=== PATIENT | male | born 1935 | race Caucasian/White ===

== ENCOUNTER → 2018-04-14 12:06 | Outpatient (CLI) | payer OTHER, SELFPAY ==
[2018-04-14 14:31] LABS: Absolute Neutrophil Count 3.9 X10^3/uL (2.0-7.7); Basophil# 0.04 X10^3/uL; Basophil% 0.6 % (0-1); Eosinophil# 0.18 X10^3/uL; Eosinophils% 2.9 % (0-5); Hematocrit 41.3 % (40-54); Hemoglobin 13.5 g/dl (13.0-16.5); Lymphocyte % 27.2 % (19-41); Mean Corp Hgb Conc 32.7 g/gl (32-36); Mean Corpuscular Hgb 29.5 pg (27.0-32.0); Mean Corpuscular Volume 90.4 fL (80-94); Mean Platelet Vol. 10.6 fl (6.2-12.0); Monocyte# 0.43 X10^3/uL; Monocyte% 6.9 % (0-10); Neutrophil # 3.91 X10^3/uL (2.7-7.7); Neutrophil % 62.4 % (47-70); Platelet Count 258 K/mm3 (150-450); RBC Distribution Width SD 46.2 fl (35.1-43.9); Red Blood Count 4.57 M/mm3 (4.6-6.2); White Blood Count 6.3 K/mm3 (4.4-11.0)
[2018-04-14 14:37] LABS: POSITIVE COUNT NO; POSITIVE DIFFERENTIAL NO; POSITIVE MORPHOLOGY NO
[2018-04-14 15:00] LABS: ALB/GLOB Ratio 1.1 RATIO (0.9-2.4); AST(SGOT) 23 U/L (15-37); Alanine Aminotransfer ALT/SGPT 25 U/L (16-61); Albumin, Serum 3.8 g/dL (3.2-5.0); Alkaline Phosphatase 62 U/L (45-117); Anion Gap 7 (5-15); BUN 18 mg/dL (7-18); BUN/Creat Ratio 17.6 RATIO (10-20); Calcium,Total 8.8 mg/dL (8.5-10.1); Chloride 105 mmol/L (98-107); Creatinine, Serum 1.02 mg/dL (0.70-1.30); EST Glomerular Filtration Rate 74 mL/min (>60); Est Glom Filt Rate - Afr Amer 90 mL/min (>60); Globulin 3.4 g/dL (2.2-4.2); Glucose 89 mg/dL (74-106); Magnesium 2.2 mg/dL (1.6-2.6); Potassium 4.4 mmol/L (3.5-5.1); Protein, Total 7.2 g/dL (6.4-8.2); Sodium Level 141 mmol/L (136-145); Thyroid Stim Hormone (TSH) 2.87 uIU/mL (0.358-3.74)
--- OUTSIDE RECORDS SUMMARY | 2018-06-16 10:08 | XMS RPT_ITS ---
:1935 Author Organization OHIP Support Name Relationship Address Phone R Unavailable Unavailable Unavailable TANNER LEE Unavailable [id number] + [place] [address] TANNER LEE Unavailable [address] + [place] [address] TANNER LEE Unavailable [phone] + [place] [address] TANNER LEE Unavailable [address] + [place] [address] TANNER LEE Unavailable [address] + [place] [address] ROSA, TANNER Unavailable [address] + [place] [address] TANNER LEE Unavailable [address] + [place] [address] TANNER LEE Unavailable [address] + [place] [address] TANNER LEE Unavailable [address] + [place] [address] ROSA, TANNER Unavailable [address] + [place] [address] ROSA, TANNRE Unavailable [address] + [place] [address] ROSATANNER Mullen Unavailable [address] + [place] [address] ROSA, TANNER Unavailable [address] + [place] [address] ROSATANNER Mullen Unavailable [address] + [place] [address] ROSA, TANNER Unavailable [address] + [place] [address] TANNER LEE Unavailable [address] + [place] [address] TANNER LEE Unavailable [address] + [place] [address] TANNER LEE Unavailable [address] + [place] [address] Care Team Providers Name Role Phone GIORGIO VÁZQUEZ, DR. BEGUM Attending Unavailable GIORGIO VÁZQUEZ, DR. BEGUM Primary Care Unavailable FELICIA WARREN, DR. MADHURI Castañeda Attending Unavailable GIORGIO , DR. BEGUM Primary Care Unavailable MARTHA WARREN, DR. JO Emery Attending Unavailable GIORGIO VÁZQUEZ, DR. BEGUM Primary Care Unavailable MARTHA WARREN, DR. JO Emery Attending Unavailable GIORGIO VÁZQUEZ, DR. BEGUM Primary Care Unavailable ANUSHA PAYTON, MSManas ANDERSON Attending Unavailable GIORGIO VÁZQUEZ, DR. BEGUM Primary Care Unavailable ANUSHA PAYTON, MSManas ANDERSON Attending Unavailable GIORGIO VÁZQUEZ, DR. BEGUM Primary Care Unavailable MARTHA WARREN, DR. JO Emery Attending Unavailable GIORGIO VÁZQUEZ, DR. BEGUM Primary Care Unavailable MARTHA WARREN, DR. JO Emery Attending Unavailable GIORGIO VÁZQUEZ, DR. BEGUM Primary Care Unavailable REBECCA MCCLELLAN MD Attending Unavailable GIORGIO VÁZQUEZ, DR. BEGUM Primary Care Unavailable Rebecca Collins Attending Unavailable Rebecca Collins Primary Care Unavailable PROBLEMS PROBLEMS DATE TYPE CONDITION / CODE ATTENDING STATUS SOURCE 02/15/2018 Admitting Persistent atrial REBECCA MCCLELLAN MD Active [facility] Diagnosis fibrillation / [facility] I48.1(ICD-10) Repository 10/12/2017 Admitting Unspecified atrial ANUSHA PAYTON, MS. Active [facility] Diagnosis fibrillation / [facility] I48.91(ICD-10) Repository PROCEDURES PROCEDURES No Procedure Records FoundRESULTS RESULTS CBC W/DIFF, AUTOMATED Collected: 04/14/2018 Status: F Source: [place] 12:09 PM [facility] REPOSITORY TYPE CODE TESTS RESULT OUT OF RANGE REFERENCE UNITS LAB L100.1000 4.4-11.0 K/mm3 Normal WBC 6.3 LAB L100.1200 4.6-6.2 M/mm3 Low RBC 4.57 LAB L100.1300 13.0-16.5 g/dl Normal HGB 13.5 LAB L100.1400 40-54 % Normal HCT 41.3 LAB L100.1500 80-94 fL Normal MCV 90.4 LAB L100.1600 27.0-32.0 pg Normal MCH 29.5 LAB L100.1700 32-36 g/gl Normal MCHC 32.7 LAB L100.1810 11.6-14.6 % Normal RDW CV 14.0 LAB L100.1820 35.1-43.9 fl High RDW SD 46.2 LAB L100.1900 150-450 K/mm3 Normal PLT 258 LAB L100.2000 6.2-12.0 fl Normal MPV 10.6 LAB L100.2100 47-70 % Normal NEUT% 62.4 LAB L100.2200 19-41 % Normal LY% 27.2 LAB L100.2300 0-10 % Normal MONO% 6.9 LAB L100.2400 0-5 % Normal EO% 2.9 LAB L100.2500 0-1 % Normal BASO% 0.6 LAB L100.2550 0.0-0.9 % Normal IM GRAN % 0.000 Result Comment: IG% - Immature Granulocytes (promyelocytes, myelocytes and metamyelocytes) > 1% indicates that a LEFT SHIFT is Present. LAB L100.2620 2.0-7.7 X10 3/uL Normal Absolute Neut 3.9 LAB L100.2720 0.83-4.51 X10 3/ul Normal Absolute Lymph 1.70 Performed By: #### L100.0100, L500.4050, L501.5200 #### [facility] [address] [place], [address] COMPREHENSIVE METABOLIC Collected: 04/14/2018 Status: F Source: [facility] 12:09 PM [facility] REPOSITORY TYPE CODE TESTS RESULT OUT OF RANGE REFERENCE UNITS LAB L501.0100 74-106 mg/dL Normal GLU 89 Result Comment: Please note revised GLUCOSE reference range effective 2017. LAB L501.1000 7-18 mg/dL Normal BUN 18 LAB L501.1100 0.70-1.30 mg/dL Normal CREAT,SERUM 1.02 Result Comment: The validity of the calculated GFR AND GFRAA in patients over 70 years has not been determined. Clinical correlation is essential. LAB L501.1110 >60 mL/min Normal EST GFR 74 Result Comment: Non- GFR Calc LAB L501.1115 >60 mL/min Normal EST GFR - AA 90 Result Comment: GFR Calc LAB L501.1300 10-20 RATIO Normal BUN/CRE 17.6 LAB L501.1500 6.4-8.2 g/dL T Normal PROT 7.2 LAB L501.1800 3.2-5.0 g/dL Normal ALB 3.8 LAB L501.1950 2.2-4.2 g/dL Normal GLOB 3.4 LAB L501.2000 0.9-2.4 RATIO Normal A/G 1.1 LAB L501.2200 8.5-10.1 mg/dL CA Normal 8.8 LAB L501.4100 15-37 U/L Normal AST 23 LAB L501.4305 45-117 U/L Normal ALK P 62 LAB L501.4405 16-61 U/L Normal ALT 25 LAB L501.4600 0.20-1.00 mg/dL T Normal BILI 0.50 LAB L501.5300 136-145 mmol/L NA Normal 141 LAB L501.5600 3.5-5.1 mmol/L K Normal 4.4 LAB L501.5900 98-107 mmol/L CL Normal 105 LAB L501.6100 21.0-32.0 mmol/L Normal CO2 29.0 LAB L501.6200 5-15 Normal GAP 7 Performed By: #### L100.0100, L500.4050, L501.5200 #### [facility] [address] [facility]. [place], [place], [id number] MAGNESIUM Collected: 04/14/2018 Status: F Source: [place] 12:09 PM [facility] REPOSITORY TYPE CODE TESTS RESULT OUT OF RANGE REFERENCE UNITS LAB L501.5200 1.6-2.6 mg/dL Normal MG 2.2 Performed By: #### L100.0100, L500.4050, L501.5200 #### [facility] [address] [facility] [place], [place], [address] THYROID STIM HORMONE Collected: 04/14/2018 Status: F Source: [place] (TSH) 12:09 PM [facility] REPOSITORY TYPE CODE TESTS RESULT OUT OF RANGE REFERENCE UNITS LAB L501.9520 0.358-3.74 uIU/mL Normal TSH 2.87 Performed By: #### L501.9520 #### [facility] [address], [address] CBC Collected: 02/15/2018 Status: F Source: [facility] 1:12 PM [facility] REPOSITORY TYPE CODE TESTS RESULT OUT OF REFERENCE UNITS RANGE LAB WBC(LOINC) 4.60-10.80 10 3/mcL WBC 6.00 LAB RBCCT(LOINC 4.04-6.13 10 6/mcL ) RBC 4.52 LAB HGB(LOINC) 14.0-18.0 G/dL Low Hgb 13.4 LAB HCT(LOINC) 42.0-52.0 % Low Hct 40.8 LAB MCV(LOINC) 80.0-94.0 fL MCV 90.4 LAB MCH(LOINC) 27.0-31.2 pg MCH 29.7 LAB MCHC(LOINC) 31.8-35.4 G/dL MCHC 32.9 LAB RDW(LOINC) 11.5-14.5 % RDW 14.1 LAB PLT(LOINC) 130-400 10 3/mcL Platelet 283 LAB MPV(LOINC) 7.4-10.4 fL MPV 9.0 Performed By: #### CBC, ADIFF, ANEU #### [address] [address] #### BMP, GFR #### [address] [address] .AUTO DIFF Collected: 02/15/2018 Status: F Source: [facility] 1:12 PM [facility] REPOSITORY TYPE CODE TESTS RESULT OUT OF REFERENCE UNITS RANGE LAB ANTIONETTE(LOINC) 37.0-80.0 % Neutrophil % 49.1 LAB LYM(LOINC) 10.0-50.0 % Lymphocyte % 37.0 LAB MON(LOINC) 1.7-13.0 % Monocyte % 9.7 LAB EO(LOINC) 0.0-7.0 % Eosinophil % 3.1 LAB BAS(LOINC) 0.0-2.5 % Basophil % 1.1 LAB ABLYM(LOIN 0.77-3.85 10 3/mcL C) Lymphocyte, 2.20 Absolute LAB SHAWN(LOINC 0.15-1.00 10 3/mcL ) Monocyte, 0.60 Absolute LAB AEOS(LOINC 0.00-0.40 10 3/mcL ) Eosinophil, 0.20 Absolute LAB ABAS(LOINC 0.00-0.19 10 3/mcL ) Basophil, 0.10 Absolute Performed By: #### CBC, ADIFF, ANEU #### [facility] [address] [place], [place] [address] #### BMP, GFR #### [address] [address] .NEUABS Collected: 02/15/2018 Status: F Source: [facility] 1:12 [facility] REPOSITORY TYPE CODE TESTS RESULT OUT OF REFERENCE UNITS RANGE LAB ANEU(LOINC) 2.85-6.16 10 3/mcL Neutrophil, 2.90 Absolute Performed By: #### CBC, ADIFF, ANEU #### [place] [address] [place], [place] [address] #### BMP, GFR #### [address] [address] BMP Collected: 02/15/2018 Status: F Source: [facility] 1:12 [facility] REPOSITORY TYPE CODE TESTS RESULT OUT OF REFERENCE UNITS RANGE LAB GLU(LOINC) 83-110 mg/dL Low Glucose Level 78 LAB NA(LOINC) 136-145 mmol/L Sodium Level 138 LAB K(LOINC) 3.5-5.1 mmol/L Potassium Level 4.2 LAB CL(LOINC) 98-107 mmol/L Chloride 100 LAB CO2(LOINC) 23-31 mmol/L CO2 30 LAB EBAL(LOINC mEq/L ) Electrolyte Balance 8.0 LAB BUN(LOINC) 7-18 mg/dL BUN 14 LAB CRE(LOINC) 0.70-1.30 mg/dL Creatinine Lvl (s) 1.07 LAB BC(LOINC) 7-27 ratio BUN/Creatinine 13 Ratio LAB CA(LOINC) 8.4-10.2 mg/dL Calcium Lvl 9.1 Performed By: #### CBC, ADIFF, ANEU #### [facility] [address] [place], [place] [address] #### BMP, GFR #### [address] [address] .GFR Collected: 02/15/2018 Status: F Source: [facility] 1:12 PM [facility] REPOSITORY TYPE CODE TESTS RESULT OUT OF REFERENCE UNITS RANGE LAB GFRAA(LOINC ml/min/1.73 ) sqm GFR 80 [place] Result Comment: GFR Population mean for , Non- Americans Ages 20-29 = 116 mL/min/1.73 sq.m. Ages 30-39 = 107 mL/min/1.73 sq.m. Ages 40-49 = 99 mL/min/1.73 sq.m. Ages 50-59 = 93 mL/min/1.73 sq.m. Ages 60-69 = 85 mL/min/1.73 sq.m. Ages 70+ = 75 mL/min/1.73 sq.m. Chronic Kidney Disease: Less than 60 mL/min/1.73 square meters End Stage Renal Disease: Less than 15 mL/min/1.73 square meters LAB GFRNO(LOINC) ml/min/1.73sqm GFR Non- 66 Result Comment: GFR Population mean for , Non- Americans Ages 20-29 = 116 mL/min/1.73 sq.m. Ages 30-39 = 107 mL/min/1.73 sq.m. Ages 40-49 = 99 mL/min/1.73 sq.m. Ages 50-59 = 93 mL/min/1.73 sq.m. Ages 60-69 = 85 mL/min/1.73 sq.m. Ages 70+ = 75 mL/min/1.73 sq.m. Chronic Kidney Disease: Less than 60 mL/min/1.73 square meters End Stage Renal Disease: Less than 15 mL/min/1.73 square meters Performed By: #### CBC, ADIFF, ANEU #### [facility] [place] [address] [place], [place] [address] #### BMP, GFR #### [address] [address] CBC Collected: 12/22/2017 Status: F Source: [facility] 1:56 PM [facility]POSIT[facility] TYPE CODE TESTS RESULT OUT OF REFERENCE UNITS RANGE LAB WBC(LOINC) 4.60-10.80 10 3/mcL WBC 5.60 LAB RBCCT(LOINC 4.04-6.13 10 6/mcL ) RBC 4.53 LAB HGB(LOINC) 14.0-18.0 G/dL Low Hgb 13.6 LAB HCT(LOINC) 42.0-52.0 % Low Hct 40.9 LAB MCV(LOINC) 80.0-94.0 fL MCV 90.4 LAB MCH(LOINC) 27.0-31.2 pg MCH 30.1 LAB MCHC(LOINC) 31.8-35.4 G/dL MCHC 33.3 LAB RDW(LOINC) 11.5-14.5 % RDW 14.2 LAB PLT(LOINC) 130-400 10 3/mcL Platelet 218 LAB MPV(LOINC) 7.4-10.4 fL MPV 8.6 Performed By: #### CBC, ADIFF, ANEU #### Janice [address] [address] #### BMP, GFR #### [address] [address] .AUTO DIFF Collected: 12/22/2017 Status: F Source: [facility] 1:56 PM [facility] REPOSITORY TYPE CODE TESTS RESULT OUT OF REFERENCE UNITS RANGE LAB ANTIONETTE(LOINC) 37.0-80.0 % Neutrophil % 54.2 LAB LYM(LOINC) 10.0-50.0 % Lymphocyte % 32.7 LAB MON(LOINC) 1.7-13.0 % Monocyte % 8.3 LAB EO(LOINC) 0.0-7.0 % Eosinophil % 3.5 LAB BAS(LOINC) 0.0-2.5 % Basophil % 1.3 LAB ABLYM(LOIN 0.77-3.85 10 3/mcL C) Lymphocyte, 1.80 Absolute LAB SHAWN(LOINC 0.15-1.00 10 3/mcL ) Monocyte, 0.50 Absolute LAB AEOS(LOINC 0.00-0.40 10 3/mcL ) Eosinophil, 0.20 Absolute LAB ABAS(LOINC 0.00-0.19 10 3/mcL ) Basophil, 0.10 Absolute Performed By: #### CBC, ADIFF, ANEU #### [place] [place], [place] [address] #### BMP, GFR #### [address] [address] .NEUABS Collected: 12/22/2017 Status: F Source: [facility] 1:56 PM [facility] REPOSITORY TYPE CODE TESTS RESULT OUT OF REFERENCE UNITS RANGE LAB ANEU(LOINC) 2.85-6.16 10 3/mcL Neutrophil, 3.00 Absolute Performed By: #### CBC, ADIFF, ANEU #### [place] [address] [place], [place] [address] #### BMP, GFR #### [address] [address] BMP Collected: 12/22/2017 Status: F Source: [facility] 1:56 [facility] REPOSITORY TYPE CODE TESTS RESULT OUT OF REFERENCE UNITS RANGE LAB GLU(LOINC) 83-110 mg/dL Glucose Level 89 LAB NA(LOINC) 136-145 mmol/L Sodium Level 138 LAB K(LOINC) 3.5-5.1 mmol/L Potassium Level 4.5 LAB CL(LOINC) 98-107 mmol/L Chloride 102 LAB CO2(LOINC) 23-31 mmol/L CO2 31 LAB EBAL(LOINC mEq/L ) Electrolyte Balance 5.0 LAB BUN(LOINC) 7-18 mg/dL BUN 18 LAB CRE(LOINC) 0.70-1.30 mg/dL Creatinine Lvl (s) 1.09 LAB BC(LOINC) 7-27 ratio BUN/Creatinine 17 Ratio LAB CA(LOINC) 8.4-10.2 mg/dL Calcium Lvl 9.3 Performed By: #### CBC, ADIFF, ANEU #### [address] [address] #### BMP, GFR #### [address] [address] .GFR Collected: 12/22/2017 Status: F Source: [facility] 1:56 PM [facility] REPOSITORY TYPE CODE TESTS RESULT OUT OF REFERENCE UNITS RANGE LAB GFRAA(LOINC ml/min/1.73 ) sqm GFR 79 [place] Result Comment: GFR Population mean for , Non- Americans Ages 20-29 = 116 mL/min/1.73 sq.m. Ages 30-39 = 107 mL/min/1.73 sq.m. Ages 40-49 = 99 mL/min/1.73 sq.m. Ages 50-59 = 93 mL/min/1.73 sq.m. Ages 60-69 = 85 mL/min/1.73 sq.m. Ages 70+ = 75 mL/min/1.73 sq.m. Chronic Kidney Disease: Less than 60 mL/min/1.73 square meters End Stage Renal Disease: Less than 15 mL/min/1.73 square meters LAB GFRNO(LOINC) ml/min/1.73sqm GFR Non- 65 Result Comment: GFR Population mean for , Non- Americans Ages 20-29 = 116 mL/min/1.73 sq.m. Ages 30-39 = 107 mL/min/1.73 sq.m. Ages 40-49 = 99 mL/min/1.73 sq.m. Ages 50-59 = 93 mL/min/1.73 sq.m. Ages 60-69 = 85 mL/min/1.73 sq.m. Ages 70+ = 75 mL/min/1.73 sq.m. Chronic Kidney Disease: Less than 60 mL/min/1.73 square meters End Stage Renal Disease: Less than 15 mL/min/1.73 square meters Performed By: #### CBC, ADIFF, ANEU #### [address] [address] #### BMP, GFR #### [place] [address] NM MYOCARDIAL SPECT Observed: 10/27/2017 Status: F Source: [place] STRESS/REST 8:15 AM [facility] [place] REPOSITORY ORIGINAL NM MYOCARDIAL SPECT STRESS/REST CLINICAL STATEMENT:ATRIAL FIBRILLATION TECHNIQUE: Stress Protocol:Sp Time Exercised:8:01minutes Predicted Max HR:139 Max HR Achieved:139 Percent Max HR:100 Peak Systolic BP:178/70 mmHg Rate-Pressure product: 68820 Radiopharmaceutical(rest): Tc-99m Sestamibi IV Dose:10.1 mCi Radiopharmaceutical(stress): Tc-99m Sestamibi IV Dose:31.1 mCi SPECT acquisition:SPECT reconstruction and reorientation into short axis, vertical and horizontal long axis planes Quantitative LVEF assessment COMPARISON:None REPORT:Left ventricle appears normal in size on both stress and rest images. On the stress images there appears to be a fixed defect in the apical region suggestive of prior myocardial infarction. Rest of the myocardium has homogenous radiotracer uptake. On the resting images th ere is reduced radiotracer in the apical region. Gated SPECT imaging revealed normal wall motion and normal end systolic brightening and thickening of all myocardial segments. Calculated LVEF 60%. Left ventricular end-diastolic volume 82 mL. IMPRESSION: 1. No evidence of inducible ischemia noted on the nuclear images. 2. Fixed defect in the apical region suggestive of prior myocardial infarction. 3. Normal wall motion and normal left ventricular systolic function, ejection fraction 60%. 4. No prior study available for comparison. Interpreted By: Brad Harris Preliminary Report By: Brad Harris Electronically Signed By: Brad Harris Dictated Date: 10/27/2017 4:16:10 PM Prelim Date: 10/27/2017 4:16:10 PM Sign Date: 10/27/2017 4:26:59 PM TSH Collected: 10/12/2017 Status: F Source: [facility] 11:03 AM [facility] REPOSITORY TYPE CODE TESTS RESULT OUT OF RANGE REFERENCE UNITS LAB TSH(LOINC) 0.36-3.74 mcIU/mL TSH 2.81 Performed By: #### TSH, CMP, GFR, MG #### [place] [address] CMP Collected: 10/12/2017 Status: F Source: [facility] 11:03 AM [facility] REPOSITORY TYPE CODE TESTS RESULT OUT OF REFERENCE UNITS RANGE LAB GLU(LOINC) 83-110 mg/dL Glucose Level 90 LAB NA(LOINC) 136-145 mmol/L Sodium Level 139 LAB K(LOINC) 3.5-5.1 mmol/L Potassium Level 4.3 LAB CL(LOINC) 98-107 mmol/L Chloride 101 LAB CO2(LOINC) 23-31 mmol/L CO2 28 LAB EBAL(LOINC mEq/L ) Electrolyte Balance 10.0 LAB BUN(LOINC) 7-18 mg/dL BUN 13 LAB CRE(LOINC) 0.70-1.30 mg/dL Creatinine Lvl (s) 1.23 LAB BC(LOINC) 7-27 ratio BUN/Creatinine 11 Ratio LAB CA(LOINC) 8.4-10.2 mg/dL Calcium Lvl 9.2 LAB PROT(LOINC 6.4-8.2 G/dL ) Total Protein 7.4 LAB ALB(LOINC) 3.4-4.8 G/dL Albumin Level 4.0 LAB GLB(LOINC) G/dL Globulin 3.4 LAB AG(LOINC) 1.1-2.5 ratio A/G Ratio 1.2 LAB BILT(LOINC 0.2-1.0 mg/dL ) Bili Total 0.7 LAB AP(LOINC) 40-135 U/L Alk Phos 65 LAB AST(LOINC) 10-40 U/L AST/SGOT 33 LAB ALT(LOINC) 10-35 U/L ALT/SGPT High 38 Performed By: #### TSH, CMP, GFR, MG #### [place] [address] .GFR Collected: 10/12/2017 Status: F Source: [facility] 11:03 AM [facility] REPOSITORY TYPE CODE TESTS RESULT OUT OF REFERENCE UNITS RANGE LAB GFRAA(LOINC ml/min/1.73 ) sqm GFR 68 [place] Result Comment: GFR Population mean for , Non- Americans Ages 20-29 = 116 mL/min/1.73 sq.m. Ages 30-39 = 107 mL/min/1.73 sq.m. Ages 40-49 = 99 mL/min/1.73 sq.m. Ages 50-59 = 93 mL/min/1.73 sq.m. Ages 60-69 = 85 mL/min/1.73 sq.m. Ages 70+ = 75 mL/min/1.73 sq.m. Chronic Kidney Disease: Less than 60 mL/min/1.73 square meters End Stage Renal Disease: Less than 15 mL/min/1.73 square meters LAB GFRNO(LOINC) ml/min/1.73sqm GFR Non- 56 Result Comment: GFR Population mean for , Non- Americans Ages 20-29 = 116 mL/min/1.73 sq.m. Ages 30-39 = 107 mL/min/1.73 sq.m. Ages 40-49 = 99 mL/min/1.73 sq.m. Ages 50-59 = 93 mL/min/1.73 sq.m. Ages 60-69 = 85 mL/min/1.73 sq.m. Ages 70+ = 75 mL/min/1.73 sq.m. Chronic Kidney Disease: Less than 60 mL/min/1.73 square meters End Stage Renal Disease: Less than 15 mL/min/1.73 square meters Performed By: #### TSH, CMP, GFR, MG #### [address] [address] MG Collected: 10/12/2017 Status: F Source: [facility] 11:03 AM [facility] REPOSITORY TYPE CODE TESTS RESULT OUT OF REFERENCE UNITS RANGE LAB MG(LOINC) 1.8-2.4 mg/dL Magnesium Lvl 2.2 Performed By: #### TSH, CMP, GFR, MG #### [address] [address] CBC Collected: 10/06/2017 Status: F Source: [facility] 11:17 [facility] REPOSITORY TYPE CODE TESTS RESULT OUT OF REFERENCE UNITS RANGE LAB WBC(LOINC) 4.60-10.80 10 3/mcL Low WBC 3.80 LAB RBCCT(LOINC 4.04-6.13 10 6/mcL ) RBC 4.77 LAB HGB(LOINC) 14.0-18.0 G/dL Hgb 14.3 LAB HCT(LOINC) 42.0-52.0 % Hct 42.7 LAB MCV(LOINC) 80.0-94.0 fL MCV 89.4 LAB MCH(LOINC) 27.0-31.2 pg MCH 29.9 LAB MCHC(LOINC) 31.8-35.4 G/dL MCHC 33.4 LAB RDW(LOINC) 11.5-14.5 % RDW 14.3 LAB PLT(LOINC) 130-400 10 3/mcL Platelet 225 LAB MPV(LOINC) 7.4-10.4 fL MPV 8.8 Performed By: #### CBC, ADIFF, ANEU, GFR, CMP #### [address] [address] .AUTO DIFF Collected: 10/06/2017 Status: F Source: [facility] 11:17 [facility] REPOSITORY TYPE CODE TESTS RESULT OUT OF REFERENCE UNITS RANGE LAB ANTIONETTE(LOINC) 37.0-80.0 % Neutrophil % 44.7 LAB LYM(LOINC) 10.0-50.0 % Lymphocyte % 38.3 LAB MON(LOINC) 1.7-13.0 % Monocyte % 11.6 LAB EO(LOINC) 0.0-7.0 % Eosinophil % 3.2 LAB BAS(LOINC) 0.0-2.5 % Basophil % 2.2 LAB ABLYM(LOIN 0.77-3.85 10 3/mcL C) Lymphocyte, 1.50 Absolute LAB SHAWN(LOINC 0.15-1.00 10 3/mcL ) Monocyte, 0.40 Absolute LAB AEOS(LOINC 0.00-0.40 10 3/mcL ) Eosinophil, 0.10 Absolute LAB ABAS(LOINC 0.00-0.19 10 3/mcL ) Basophil, 0.10 Absolute Performed By: #### CBC, ADIFF, ANEU, GFR, CMP #### [address] [address] .NEUABS Collected: 10/06/2017 Status: F Source: [facility] 11:17 [facility] REPOSITORY TYPE CODE TESTS RESULT OUT OF REFERENCE UNITS RANGE LAB ANEU(LOINC) 2.85-6.16 10 3/mcL Low Neutrophil, 1.70 Absolute Performed By: #### CBC, ADIFF, ANEU, GFR, CMP #### [address] [address] .GFR Collected: 10/06/2017 Status: F Source: [facility] 11:17 [facility] REPOSITORY TYPE CODE TESTS RESULT OUT OF REFERENCE UNITS RANGE LAB GFRAA(LOINC ml/min/1.73 ) sqm GFR >60 Canadian Result Comment: GFR Population mean for , Non- Americans Ages 20-29 = 116 mL/min/1.73 sq.m. Ages 30-39 = 107 mL/min/1.73 sq.m. Ages 40-49 = 99 mL/min/1.73 sq.m. Ages 50-59 = 93 mL/min/1.73 sq.m. Ages 60-69 = 85 mL/min/1.73 sq.m. Ages 70+ = 75 mL/min/1.73 sq.m. Chronic Kidney Disease: Less than 60 mL/min/1.73 square meters End Stage Renal Disease: Less than 15 mL/min/1.73 square meters LAB GFRNO(LOINC) ml/min/1.73sqm GFR Non- >60 Result Comment: GFR Population mean for , Non- Americans Ages 20-29 = 116 mL/min/1.73 sq.m. Ages 30-39 = 107 mL/min/1.73 sq.m. Ages 40-49 = 99 mL/min/1.73 sq.m. Ages 50-59 = 93 mL/min/1.73 sq.m. Ages 60-69 = 85 mL/min/1.73 sq.m. Ages 70+ = 75 mL/min/1.73 sq.m. Chronic Kidney Disease: Less than 60 mL/min/1.73 square meters End Stage Renal Disease: Less than 15 mL/min/1.73 square meters Performed By: #### CBC, ADIFF, ANEU, GFR, CMP #### [address] [address] CMP Collected: 10/06/2017 Status: F Source: [facility] 11:17 AM [facility] REPOSITORY TYPE CODE TESTS RESULT OUT OF REFERENCE UNITS RANGE LAB GLU(LOINC) 83-110 mg/dL Glucose Level 93 LAB NA(LOINC) 136-146 mEq/L Sodium Level 142 LAB K(LOINC) 3.5-5.1 mEq/L Potassium Level 4.3 LAB CL(LOINC) 98-107 mEq/L Chloride 106 LAB CO2(LOINC) 23-31 mEq/L CO2 29 LAB EBAL(LOINC mEq/L ) Electrolyte Balance 7.0 LAB BUN(LOINC) 7.0-18.0 mg/dL BUN 11.9 LAB CRE(LOINC) 0.6-1.2 mg/dL Creatinine Lvl (s) 1.0 LAB BC(LOINC) 7-27 ratio BUN/Creatinine 12 Ratio LAB CA(LOINC) 8.4-10.2 mg/dL Calcium Lvl 9.1 LAB PROT(LOINC 6.0-8.3 G/dL ) Total Protein 6.7 LAB ALB(LOINC) 3.4-4.8 G/dL Albumin Level 4.3 LAB GLB(LOINC) G/dL Globulin 2.4 LAB AG(LOINC) 1.1-2.5 ratio A/G Ratio 1.8 LAB BILT(LOINC 0.2-1.0 mg/dL ) Bili Total 0.4 LAB AP(LOINC) 40-135 IU/L Alk Phos 59 LAB AST(LOINC) 10-40 IU/L AST/SGOT 29 LAB ALT(LOINC) 10-35 IU/L ALT/SGPT 25 Performed By: #### CBC, ADIFF, ANEU, GFR, CMP #### Janice Dona Ana [address] [place], [place] [address] CT ABDOMEN/PELVIS Observed: 07/30/2017 Status: F Source: JANICE W/CONTRAST 10:00 AM [facility], [place] REPOSITORY ORIGINAL CT ABDOMEN/PELVIS W/CONTRAST CLINICAL STATEMENT: LLQ PAIN COMPARISON: None TECHNIQUE: Axial images were obtained from the lung bases through the pubic symphysis after the administration of IV and PO contrast. Coronal and sagittal reformatted images were generated from the axia l dataset. This exam was performed according to our departmental dose optimization program, and includes the following measures where applicable: automated exposure control, adjustment of the mAs and/or kVp according to patient size and/or exam, and an iterative reconstruction algorithm. FINDINGS: There are dependent atelectatic changes. There is diffusely low attenuation of the liver parenchyma which may be related to fatty infiltration. The spleen, adrenal glands and pancreas are within normal limits. There is cholelithiasis. No intra hepatic or extra hepatic biliary ductal dilation. The kidneys enhance symmetrically. There is a subcentimeter RIGHT renal cortical hypodensity which is too small to characterize however statistically likely represents a cyst. No hydronephrosis or suspi cious renal masses. Multiple phleboliths are seen within the pelvis. There is a small hiatal hernia. There are scattered colonic diverticula, without CT evidence of acute diverticulitis. There is a LEFT inguinal hernia containing a short segment of proximal sigmoid colon . The large and small bowel are normal in caliber. The appendix is normal. No free intraperitoneal fluid or air is identified. No pathologically enlarged lymph nodes. The aorta is atherosclerotic without aneurysmal dilation. The bladder is within normal limits. The prostate contains calcifications. There is a tiny fat-containing umbilical hernia. No acute osseous abnormality. Degenerative changes are seen within the spine. IMPRESSION: 1. No acute process. 2. LEFT inguinal hernia containing a short segment of nondilated proximal sigmoid colon. Interpreted By: Malu Sparks MD Preliminary Report By: Malu Sparks MD Electronically Signed By: Malu Sparks MD Dictated Date: 07/30/2017 1:47:49 PM Prelim Date: 07/30/2017 3:00:23 PM Sign Date: 07/30/2017 7:15:34 PM CRE Collected: 07/30/2017 Status: F Source: [facility] 7:53 AM [facility] REPOSITORY TYPE CODE TESTS RESULT OUT OF REFERENCE UNITS RANGE LAB CRE(LOINC) 0.6-1.2 mg/dL Creatinine Lvl 1.0 (s) Performed By: #### CRE, GFR #### [address] [address] .GFR Collected: 07/30/2017 Status: F Source: [facility] 7:53 AM [facility] REPOSITORY TYPE CODE TESTS RESULT OUT OF REFERENCE UNITS RANGE LAB GFRAA(LOINC ml/min/1.73 ) sqm GFR 87 Canadian Result Comment: GFR Population mean for , Non- Americans Ages 20-29 = 116 mL/min/1.73 sq.m. Ages 30-39 = 107 mL/min/1.73 sq.m. Ages 40-49 = 99 mL/min/1.73 sq.m. Ages 50-59 = 93 mL/min/1.73 sq.m. Ages 60-69 = 85 mL/min/1.73 sq.m. Ages 70+ = 75 mL/min/1.73 sq.m. Chronic Kidney Disease: Less than 60 mL/min/1.73 square meters End Stage Renal Disease: Less than 15 mL/min/1.73 square meters LAB GFRNO(LOINC) ml/min/1.73sqm GFR Non- >60 Result Comment: GFR Population mean for , Non- Americans Ages 20-29 = 116 mL/min/1.73 sq.m. Ages 30-39 = 107 mL/min/1.73 sq.m. Ages 40-49 = 99 mL/min/1.73 sq.m. Ages 50-59 = 93 mL/min/1.73 sq.m. Ages 60-69 = 85 mL/min/1.73 sq.m. Ages 70+ = 75 mL/min/1.73 sq.m. Chronic Kidney Disease: Less than 60 mL/min/1.73 square meters End Stage Renal Disease: Less than 15 mL/min/1.73 square meters Performed By: #### CRE, GFR #### [id number] [place], [place] [address] ALLERGIES ALLERGIES No Allergies Records FoundENCOUNTERS ENCOUNTERS ADMIT/DISCHARGE ACCOUNT NUMBER ADMITTING ENCOUNTER LOCATION SOURCE CLASS 04/14/2018 [id number] Ambulatory General acute hospital ding:MFPLAB Repository 02/15/2018/02/20/20 [id number] Ambulatory BBuilding:DR Janice [facility] 12/28/2017/12/29/19 [id number] [facility]Bed: A [facility] Repository 12/22/2017/12/23/19 [id number] Ambulatory JANICE [address] ding:OPRS [facility] Rep[facility] 10/27/2017/10/28/19 [id number] Ambulatory JANICE Janice [address] [place] [address] ding:CVT [facility] Repository 10/12/2017/10/17/19 [id number] Ambulatory JANICE [address] ding:DROP [facility] Repository 10/12/2017 [id number] Ambulatory BBuilding:Desai RSRoom: Health 0001Bed: A [facility] Repository 10/06/2017/10/07/19 [id number] Ambulatory JANICE Janice [address] [place] [address] ding:OPRS [facility] Repository 07/30/2017/07/31/19 [id number] Ambulatory JANICE Janice [address] [place] [address] ding:OLAB [facility] Repository 07/30/2017/07/31/19 [id number] Ambulatory BBuilding:RA Janice [facility] Repository PAYERS PAYERS ENCOUNTER GUARANTOR PAYER SUBSCRIBER SOURCE 04/14/2018 Miller FrederickOB: [place] [id number] Insurance:HEALTH PLAN [id number]: Repository [address]Vrk: (330) [id number] [phone] (HP) Date: [facility] [place] [address]YP: 04/14/2018 Secondary NOT GIVENUNK [place] Insurance:SELF PAY [facility] Number: Effective Repository Date:2018-04-14 02/15/2018 MILLER FREDERICKOB: Primary MILLER FREDERICKOB: [place] Insurance:SECURECARE [id number] [facility] MEDICAREPolicy [address] Repository [place], [place] Number: [place] [address]Zxk: (330) [id number] [id number]: (HP) Date:2018-02-15 [id number] (HP)Tel: [phone]) Name:Josh [facility] 000-0000 () [place] [address]DN: 12/28/2017 MILLER FREDERICKOB: Primary MILLER FREDERICKOB: [place] [id number] Insurance:SECURECARE [id number] [facility] [address] Repository [facility] [place] Number: [place] [id number]: (330) [id number]: (HP) Date:2017-12-18 [phone] (HP)Tel: ([phone]) Name:[id number] [facility] 000-0000 () [place] [address]BZ: 12/22/2017 MILLER FREDERICKOB: Primary MILLER FREDERICKOB: [place] Insurance:SECURECARE [id number] [facility] MEDICAREPolicy [address] Rep[address] [facility] [place] Number: [place] [address]Xob: (330) [id number]: (HP) Date:2017-12-18831Plan (HP)Tel: [phone]) Name:Josh [facility] 000-0000 (WP) [place] [address]BN: 10/27/2017 MILLER Patel DOTYDOB: Primary MILLER Patel DOTYDOB: [place] Insurance:SECURECARE [id number] Foundation [facility] MEDICAREPolicy [address] [place], [place] Number: [place] [id number]: (330) [id number]: (HP) Date:2017-10-13831Plan (HP)Tel: (000) Name:Josh SPENCER 000- (WP) [facility] [place] [place] [address]IJ: 10/12/2017 MILLER Patel DOTYDOB: Primary MILLER Patel DOTYDOB: [place] [id number] Insurance:SECURECARE [id number] Foundation [facility] MEDICAREPolicy [address] Repository [facility] [place] Number: [place] [id number]: (330) [id number]: (HP) Date:2017-10-12 [id number] (HP)Tel: (000) Name:Josh MAIN 000-0000 (WP) [facility] [place] [address]PE: 10/12/2017 MILLER Patel DOTYDOB: Primary MILLER Ptael DOTYDOB: [place] Insurance:SECURECARE [id number] [facility] MEDICAREPolicy [address] Repository [facility] [place] Number: [place] [address]Whx: (330) [id number]: (HP) Date:2017-10-01831Plan (HP)Tel: (000) Name:Johs SPENCER 000-0000 (WP) [place] [address]ZJ: 10/06/2017 MILLER Patel DOTYDOB: Primary MILLER Patel DOTYDOB: [place] Insurance:SECURECARE [id number] Foundation [facility] MEDICAREPolicy [address] Repository [place], [place] Number: [place] [address]Lwh: (330) [id number]: (HP) Date:2017-10-01831Plan (HP)Tel: (000) Name:Josh SPENCER 000- (WP) [facility] [place] [address]RH: 07/30/2017 MILLER Patel DOTYDOB: Primary MILLER Patel DOTYDOB: [place] Insurance:SECURECARE [id number] [place], [place] [address] [address] [place], [place] Number: [place] [id number]: (330) [id number]: (HP) Date:2017-07-30 [id number] (HP)Tel: (000) Name:Josh MAIN 000-0000 () [facility] [place] [address]TP: 07/30/2017 MILLER Patel DOTYDOB: Primary MILLER Patel DOTYDOB: [place] Insurance:SECURECARE [id number] Foundation [facility] MEDIC[facility] [address] Repository [facility] [place] Number: [place] [address]Aps: (330) [id number]: () Date:2017-07-28 [phone] ()Tel: ([phone]) Name:[id number] MAIN 000-0000 () [place] [address]II:
== END ==
PROVIDERS: Family Provider Family Medicine; PCP Family Medicine; Visit Provider Family Medicine
DX: I48.91 Unspecified atrial fibrillation (principal)
CPT/HCPCS: 36415; 80053; 83735; 84443; 85025

== ENCOUNTER → 2018-12-02 | Outpatient (CLI) | payer OTHER, SELFPAY ==
[2018-12-02 16:19] LABS: Absolute Lymphocyte Count 1.94 X10^3/uL (0.83-4.51); Absolute Neutrophil Count 3.7 X10^3/uL (2.0-7.7); Basophil# 0.06 X10^3/uL; Basophil% 0.9 % (0-1); Eosinophil# 0.27 X10^3/uL; Eosinophils% 4.2 % (0-5); Hematocrit 43.3 % (40-54); Hemoglobin 14.1 g/dL (13.0-16.5); Lymphocyte # 1.94 X10^3/ul (4.0); Lymphocyte % 30.2 % (19-41); Mean Corp Hgb Conc 32.6 g/dL (32-36); Mean Corpuscular Hgb 29.7 pg (27.0-32.0); Mean Corpuscular Volume 91.2 fL (80-94); Mean Platelet Vol. 10.3 fl (6.2-12.0); Monocyte# 0.48 X10^3/uL; Monocyte% 7.5 % (0-10); NRBC Flagged by Analyzer 0 % (0-5); Neutrophil # 3.67 X10^3/uL (2.7-7.7); Platelet Count 284 K/mm3 (150-450); RBC Distribution Width CV 13.7 % (11.6-14.6); RBC Distribution Width SD 46.1 fl (35.1-43.9); Red Blood Count 4.75 M/mm3 (4.6-6.2); White Blood Count 6.4 K/mm3 (4.4-11.0)
[2018-12-02 17:06] LABS: ALB/GLOB Ratio 0.9 RATIO (0.9-2.4); AST(SGOT) 24 U/L (15-37); Alanine Aminotransfer ALT/SGPT 21 U/L (16-61); Albumin, Serum 3.7 g/dL (3.2-5.0); Alkaline Phosphatase 72 U/L (45-117); Anion Gap 6 (5-15); BUN 13 mg/dL (7-18); BUN/Creat Ratio 11.9 RATIO (10-20); CPK Total, Creatine Kinase 187 U/L (39-308); Calcium,Total 8.9 mg/dL (8.5-10.1); Chloride 106 mmol/L (98-107); Cholesterol 135 mg/dL (200); Creatinine, Serum 1.09 mg/dL (0.70-1.30); EST Glomerular Filtration Rate 69 mL/min (>60); Est Glom Filt Rate - Afr Amer 83 mL/min (>60); Ferritin 17 ng/mL (26-388); Glucose 86 mg/dL (74-106); High Density Lipoprotein 50 mg/dL; Magnesium 2.1 mg/dL (1.6-2.6); Potassium 4.5 mmol/L (3.5-5.1); Protein, Total 7.7 g/dL (6.4-8.2); Sodium Level 141 mmol/L (136-145); Triglycerides 58 mg/dL; Very Low Density Lipoprotein 12 mg/dL (5-40)
== END | disposition home or self-care (01) ==
LOC: MFPLAB 14:03
PROVIDERS: Family Provider Family Medicine; PCP Family Medicine; Referring Provider Family Medicine; Visit Provider Family Medicine
DX: I48.91 Unspecified atrial fibrillation (principal); R25.2 Cramp and spasm
CPT/HCPCS: 36415; 80053; 80061; 82550; 82728; 83735; 85025

== ENCOUNTER → 2018-12-16 | Outpatient (CLI) | payer OTHER, SELFPAY ==
[2018-12-16 17:39] LABS: Basophil# 0.03 X10^3/uL; Basophil% 0.5 % (0-1); Eosinophils% 1.6 % (0-5); Hematocrit 47.6 % (40-54); Hemoglobin 15.4 g/dL (13.0-16.5); Lymphocyte % 22.7 % (19-41); Mean Corp Hgb Conc 32.4 g/dL (32-36); Mean Corpuscular Hgb 29.2 pg (27.0-32.0); Mean Corpuscular Volume 90.3 fL (80-94); Mean Platelet Vol. 10.6 fl (6.2-12.0); Monocyte# 0.67 X10^3/uL; Monocyte% 10.9 % (0-10); NRBC Flagged by Analyzer 0 % (0-5); Neutrophil # 3.95 X10^3/uL (2.7-7.7); Neutrophil % 64.1 % (47-70); Platelet Count 225 K/mm3 (150-450); RBC Distribution Width CV 13.8 % (11.6-14.6); RBC Distribution Width SD 46.1 fl (35.1-43.9); Red Blood Count 5.27 M/mm3 (4.6-6.2); White Blood Count 6.2 K/mm3 (4.4-11.0)
== END | disposition home or self-care (01) ==
LOC: MFPLAB 16:12
PROVIDERS: Family Medicine; Family Provider Family Medicine; PCP Family Medicine; Referring Provider Family Medicine; Visit Provider Family Medicine
DX: K92.1 Melena (principal)
CPT/HCPCS: 36415; 85025

== ENCOUNTER → 2019-02-02 | Outpatient (CLI) | payer OTHER, SELFPAY ==
[2019-02-02 15:58] LABS: Ferritin 23 ng/mL (26-388)
== END | disposition home or self-care (01) ==
LOC: MFPLAB 14:08
PROVIDERS: Family Provider Family Medicine; PCP Family Medicine; Referring Provider Family Medicine; Visit Provider Family Medicine
DX: R79.0 Abnormal level of blood mineral (principal)
CPT/HCPCS: 36415; 82728

== ENCOUNTER → 2019-07-29 | Outpatient (CLI) | payer OTHER, SELFPAY ==
[2019-07-29 15:32] LABS: Absolute Lymphocyte Count 1.74 X10^3/uL (0.83-4.51); Absolute Neutrophil Count 2.5 X10^3/uL (2.0-7.7); Basophil# 0.06 X10^3/uL; Basophil% 1.2 % (0-1); Eosinophil# 0.16 X10^3/uL; Eosinophils% 3.3 % (0-5); Hematocrit 44.4 % (40-54); Hemoglobin 14.3 g/dL (13.0-16.5); Lymphocyte # 1.74 X10^3/ul (4.0); Lymphocyte % 35.9 % (19-41); Mean Corp Hgb Conc 32.2 g/dL (32-36); Mean Corpuscular Hgb 29.8 pg (27.0-32.0); Mean Corpuscular Volume 92.5 fL (80-94); Mean Platelet Vol. 10.4 fl (6.2-12.0); Monocyte# 0.36 X10^3/uL; Monocyte% 7.4 % (0-10); NRBC Flagged by Analyzer 0 % (0-5); Neutrophil # 2.52 X10^3/uL (2.7-7.7); Platelet Count 236 K/mm3 (150-450); RBC Distribution Width CV 13.6 % (11.6-14.6); RBC Distribution Width SD 46.5 fl (35.1-43.9); White Blood Count 4.9 K/mm3 (4.4-11.0)
[2019-07-29 15:54] LABS: AST(SGOT) 25 U/L (15-37); Alanine Aminotransfer ALT/SGPT 28 U/L (16-61); Albumin, Serum 3.8 g/dL (3.2-5.0); Alkaline Phosphatase 61 U/L (45-117); Anion Gap 5 (5-15); BUN 13 mg/dL (7-18); BUN/Creat Ratio 12.5 RATIO (10-20); Calcium,Total 8.6 mg/dL (8.5-10.1); Chloride 107 mmol/L (98-107); Creatinine, Serum 1.04 mg/dL (0.70-1.30); EST Glomerular Filtration Rate 72 mL/min (>60); Est Glom Filt Rate - Afr Amer 88 mL/min (>60); Ferritin 48 ng/mL (26-388); Globulin 3.7 g/dL (2.2-4.2); Glucose 93 mg/dL (74-106); Iron 82 ug/dL (65-175); Iron Binding Capacity,Total 322 ug/dL (250-450); Magnesium 2.2 mg/dL (1.6-2.6); Potassium 4.4 mmol/L (3.5-5.1); Protein, Total 7.5 g/dL (6.4-8.2); Sodium Level 138 mmol/L (136-145)
== END | disposition home or self-care (01) ==
LOC: MFPLAB 11:31
PROVIDERS: PCP Family Medicine; Visit Provider Family Medicine
DX: I48.91 Unspecified atrial fibrillation (principal); R79.0 Abnormal level of blood mineral
CPT/HCPCS: 36415; 80053; 82728; 83540; 83550; 83735; 85025

== ENCOUNTER → 2019-09-30 | Outpatient (CLI) | payer OTHER, SELFPAY ==
[2019-09-30 17:41] LABS: Anion Gap 5 (5-15); BUN 12 mg/dL (7-18); BUN/Creat Ratio 11.8 RATIO (10-20); Calcium,Total 8.5 mg/dL (8.5-10.1); Chloride 106 mmol/L (98-107); Creatinine, Serum 1.02 mg/dL (0.70-1.30); EST Glomerular Filtration Rate 74 mL/min (>60); Est Glom Filt Rate - Afr Amer 90 mL/min (>60); Glucose 86 mg/dL (74-106); Potassium 4.3 mmol/L (3.5-5.1); Sodium Level 139 mmol/L (136-145)
[2019-09-30 17:55] LABS: Absolute Lymphocyte Count 1.61 X10^3/uL (0.83-4.51); Absolute Neutrophil Count 4.4 X10^3/uL (2.0-7.7); Basophil# 0.05 X10^3/uL; Basophil% 0.8 % (0-1); Eosinophil# 0.17 X10^3/uL; Eosinophils% 2.6 % (0-5); Hemoglobin 13.5 g/dL (13.0-16.5); Lymphocyte # 1.61 X10^3/ul (4.0); Lymphocyte % 24.5 % (19-41); Mean Corp Hgb Conc 32.1 g/dL (32-36); Mean Corpuscular Hgb 30.1 pg (27.0-32.0); Mean Corpuscular Volume 93.8 fL (80-94); Mean Platelet Vol. 10.5 fl (6.2-12.0); Monocyte# 0.37 X10^3/uL; Monocyte% 5.6 % (0-10); NRBC Flagged by Analyzer 0 % (0-5); Neutrophil # 4.35 X10^3/uL (2.7-7.7); Neutrophil % 66.3 % (47-70); Platelet Count 234 K/mm3 (150-450); RBC Distribution Width CV 13.7 % (11.6-14.6); RBC Distribution Width SD 46.7 fl (35.1-43.9); Red Blood Count 4.48 M/mm3 (4.6-6.2); White Blood Count 6.6 K/mm3 (4.4-11.0)
== END | disposition home or self-care (01) ==
LOC: MFPLAB 13:47
PROVIDERS: PCP Family Medicine; Referring Provider Family Medicine; Visit Provider Family Medicine
DX: E86.0 Dehydration (principal); D64.9 Anemia, unspecified
CPT/HCPCS: 36415; 80048; 85025

== ENCOUNTER → 2020-05-01 10:51 | Outpatient (CLI) | payer OTHER, SELFPAY ==
[2020-05-01 13:09] LABS: Absolute Lymphocyte Count 1.68 X10^3/uL (0.83-4.51); Absolute Neutrophil Count 3.4 X10^3/uL (2.0-7.7); Basophil# 0.07 X10^3/uL; Basophil% 1.2 % (0-1); Eosinophil# 0.22 X10^3/uL; Eosinophils% 3.8 % (0-5); Hemoglobin 14.4 g/dL (13.0-16.5); Lymphocyte # 1.68 X10^3/ul (4.0); Lymphocyte % 29.1 % (19-41); Mean Corpuscular Hgb 28.9 pg (27.0-32.0); Mean Corpuscular Volume 90.4 fL (80-94); Mean Platelet Vol. 10.2 fl (6.2-12.0); Monocyte# 0.44 X10^3/uL; Monocyte% 7.6 % (0-10); NRBC Flagged by Analyzer 0 % (0-5); Neutrophil # 3.36 X10^3/uL (2.7-7.7); Neutrophil % 58.1 % (47-70); Platelet Count 286 K/mm3 (150-450); RBC Distribution Width CV 13.9 % (11.6-14.6); RBC Distribution Width SD 46.3 fl (35.1-43.9); Red Blood Count 4.98 M/mm3 (4.6-6.2); White Blood Count 5.8 K/mm3 (4.4-11.0)
[2020-05-01 13:23] LABS: ALB/GLOB Ratio 0.9 RATIO (0.9-2.4); AST(SGOT) 27 U/L (15-37); Alanine Aminotransfer ALT/SGPT 25 U/L (16-61); Albumin, Serum 3.8 g/dL (3.2-5.0); Alkaline Phosphatase 71 U/L (45-117); Anion Gap 4 (5-15); BUN 14 mg/dL (7-18); BUN/Creat Ratio 13.2 RATIO (10-20); Calcium,Total 8.8 mg/dL (8.5-10.1); Chloride 105 mmol/L (98-107); Cholesterol 141 mg/dL (200); Creatinine, Serum 1.06 mg/dL (0.70-1.30); EST Glomerular Filtration Rate 71 mL/min (>60); Est Glom Filt Rate - Afr Amer 86 mL/min (>60); Ferritin 43 ng/mL (26-388); Globulin 4.1 g/dL (2.2-4.2); Glucose 81 mg/dL (74-106); High Density Lipoprotein 48 mg/dL; Iron 111 ug/dL (65-175); Iron Binding Capacity,Total 341 ug/dL (250-450); Magnesium 2.4 mg/dL (1.6-2.6); Potassium 4.2 mmol/L (3.5-5.1); Protein, Total 7.9 g/dL (6.4-8.2); Sodium Level 139 mmol/L (136-145); Thyroid Stim Hormone (TSH) 7.22 uIU/mL (0.358-3.74); Triglycerides 100 mg/dL; Very Low Density Lipoprotein 20 mg/dL (5-40)
[2020-05-03 10:17] LABS: T4 Free Direct 0.96 ng/dL (0.76-1.46)
[2020-05-14 13:02] LABS: Anti-Thyroglobulin AB > 2250.0 IU/mL (0.0-0.9); Thyroglobulin RIA 13 ng/mL (.); Thyroid Peroxidase AB 88 IU/mL (0-34)
== END ==
PROVIDERS: PCP Family Medicine; Referring Provider Family Medicine; Visit Provider Family Medicine
DX: I48.91 Unspecified atrial fibrillation (principal); R79.0 Abnormal level of blood mineral
CPT/HCPCS: 36415; 80053; 80061; 82728; 83540; 83550; 83735; 84432; 84439; 84443; 85025; 86376; 86800

== ENCOUNTER → 2020-12-04 15:29 | Outpatient (CLI) | payer OTHER, SELFPAY ==
[2020-12-04 17:59] LABS: Absolute Lymphocyte Count 1.71 X10^3/uL (0.83-4.51); Absolute Neutrophil Count 4.3 X10^3/uL (2.0-7.7); Basophil# 0.05 X10^3/uL; Basophil% 0.8 % (0-1); Eosinophil# 0.12 X10^3/uL; Eosinophils% 1.8 % (0-5); Hematocrit 43.7 % (40-54); Hemoglobin 14.2 g/dL (13.0-16.5); Lymphocyte # 1.71 X10^3/ul (0.83-4.51); Lymphocyte % 26.1 % (19-41); Mean Corp Hgb Conc 32.5 g/dL (32-36); Mean Corpuscular Volume 89.4 fL (80-94); Monocyte% 6.1 % (0-10); NRBC Flagged by Analyzer 0 % (0-5); Neutrophil # 4.27 X10^3/uL (2.7-7.7); Platelet Count 277 K/mm3 (150-450); RBC Distribution Width CV 13.7 % (11.6-14.6); RBC Distribution Width SD 44.7 fl (35.1-43.9); Red Blood Count 4.89 M/mm3 (4.6-6.2); White Blood Count 6.6 K/mm3 (4.4-11.0)
[2020-12-04 18:27] LABS: AST(SGOT) 30 U/L (15-37); Alanine Aminotransfer ALT/SGPT 28 U/L (16-61); Albumin, Serum 3.8 g/dL (3.2-5.0); Alkaline Phosphatase 60 U/L (45-117); Anion Gap 5 (5-15); BUN 15 mg/dL (7-18); BUN/Creat Ratio 13.5 RATIO (10-20); Calcium,Total 8.8 mg/dL (8.5-10.1); Chloride 105 mmol/L (98-107); Creatinine, Serum 1.11 mg/dL (0.70-1.30); EST Glomerular Filtration Rate 67 mL/min (>60); Est Glom Filt Rate - Afr Amer 81 mL/min (>60); Glucose 88 mg/dL (74-106); Magnesium 2.2 mg/dL (1.6-2.6); Potassium 4.2 mmol/L (3.5-5.1); Protein, Total 7.8 g/dL (6.4-8.2); Sodium Level 137 mmol/L (136-145); T4 Free Direct 1.01 ng/dL (0.76-1.46); Thyroid Stim Hormone (TSH) 5.83 uIU/mL (0.358-3.74)
== END ==
PROVIDERS: PCP Family Medicine; Referring Provider Family Medicine; Visit Provider Family Medicine
DX: E06.3 Autoimmune thyroiditis (principal); I48.91 Unspecified atrial fibrillation
CPT/HCPCS: 36415; 80053; 83735; 84439; 84443; 85025

== ENCOUNTER → 2021-08-06 | Outpatient (CLI) | payer OTHER, SELFPAY ==
[2021-08-06 15:22] LABS: Absolute Lymphocyte Count 1.59 X10^3/uL (0.83-4.51); Absolute Neutrophil Count 3.5 X10^3/uL (2.0-7.7); Basophil# 0.06 X10^3/uL; Basophil% 1.1 % (0-1); Eosinophil# 0.08 X10^3/uL; Eosinophils% 1.4 % (0-5); Lymphocyte # 1.59 X10^3/ul (0.83-4.51); Lymphocyte % 28.6 % (19-41); Mean Corp Hgb Conc 32.5 g/dL (32-36); Mean Corpuscular Hgb 29.4 pg (27.0-32.0); Mean Corpuscular Volume 90.5 fL (80-94); Mean Platelet Vol. 10.3 fl (6.2-12.0); Monocyte# 0.33 X10^3/uL; Monocyte% 5.9 % (0-10); NRBC Flagged by Analyzer 0 % (0-5); Neutrophil # 3.49 X10^3/uL (2.7-7.7); Neutrophil % 62.8 % (47-70); Platelet Count 232 K/mm3 (150-450); RBC Distribution Width CV 13.7 % (11.6-14.6); RBC Distribution Width SD 45.6 fl (35.1-43.9); Red Blood Count 4.42 M/mm3 (4.6-6.2); White Blood Count 5.6 K/mm3 (4.4-11.0)
[2021-08-06 16:23] LABS: ALB/GLOB Ratio 1.1 RATIO (0.9-2.4); AST(SGOT) 24 U/L (15-37); Alanine Aminotransfer ALT/SGPT 19 U/L (16-61); Albumin, Serum 3.7 g/dL (3.2-5.0); Alkaline Phosphatase 60 U/L (45-117); Anion Gap 3 (5-15); BUN 11 mg/dL (7-18); BUN/Creat Ratio 9.6 RATIO (10-20); Calcium,Total 8.7 mg/dL (8.5-10.1); Chloride 108 mmol/L (98-107); Creatinine, Serum 1.15 mg/dL (0.70-1.30); EST Glomerular Filtration Rate 64 mL/min (>60); Est Glom Filt Rate - Afr Amer 78 mL/min (>60); Globulin 3.5 g/dL (2.2-4.2); Glucose 113 mg/dL (74-106); Magnesium 2.2 mg/dL (1.6-2.6); Potassium 3.6 mmol/L (3.5-5.1); Protein, Total 7.2 g/dL (6.4-8.2); Sodium Level 140 mmol/L (136-145); T4 Free Direct 0.91 ng/dL (0.76-1.46)
[2021-08-07 11:58] LABS: Hemoglobin A1c 5.8 % (3.8-5.6)
== END | disposition home or self-care (01) ==
LOC: MFPLAB 14:25
PROVIDERS: PCP Family Medicine; Visit Provider Family Medicine
DX: R73.09 Other abnormal glucose (principal); I48.91 Unspecified atrial fibrillation; E06.3 Autoimmune thyroiditis
CPT/HCPCS: 36415; 80053; 83036; 83735; 84439; 84443; 85025

== ENCOUNTER → 2021-08-07 | Outpatient (CLI) | payer OTHER, SELFPAY ==
--- NOTE | 2021-08-07 13:43 | VDLE_ITS ---
Reason For Study: Swelling RIGHT LEFT GSV is normal. CFV is compressible, spontaneous, phasic, CFV is compressible, spontaneous, phasic, competent, and demonstrates normal competent and demonstrates normal augmentation. augmentation. FV is compressible, spontaneous, phasic, competent and demonstrates normal augmentation. POP V is compressible, spontaneous, phasic, competent and demonstrates normal augmentation. T/P Trunk is compressible. PTV is compressible. RT PerV is compressible. Hypoechoic, non vascular structure noted Rt Pop Fossa measuring 1.87cm x 4.98cm. Procedure This is a venous duplex using B-mode, color flow and spectral Doppler. Exam performed in department. A preliminary report was called and/or faxed to Dr. Collins. VL/Venous Duplex US, Unilateral Interpretation Summary Deep veins of the right lower extremity are patent and compressible segmentally . There is no evidence of right lower extremity deep vein thrombosis. Valvular competence arianna ears intact within the proximal deep venous system on the right . The right great saphenous vein a ppears patent and compressible segmentally. A non-vascular, hypoechoic structure is noted in the right popliteal space, measuring 1.87 cm x 4.98 cm. This probably represents a popliteal cyst. Clinical correlation is advised. Ordering Physician: Rell Collins Referring Physician: Rell Collins Performed By: Josie English, ADIS, RVT
--- NOTE | 2021-08-07 14:31 | US_ITS ---
STUDY: SUPERFICIAL ULTRASOUND - RIGHT POPLITEAL FOSSA. REASON FOR EXAM: Male, 86 years old. SWELLING LOWER EXTREMITY/R POPLITEAL FOSSA AND INFERIOR TECHNIQUE: A superficial ultrasound was performed with real-time and static palafox-scale imaging. COMPARISON: None. 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 US/Ext Non Vasc Limited/Soft Tiss IMPRESSION: The palpable abnormality corresponds to 6 cm x 3.7 cm x 2 cm complex cystic mass in the popliteal fossa suggestive of a Martines''s cyst with possible hemorrhage. Electronically Signed: Nayan Kyle MD at 15:15 EDT ,
== END | disposition home or self-care (01) ==
LOC: CVS 13:41
PROVIDERS: PCP Family Medicine; Visit Provider Family Medicine
DX: M79.89 Other specified soft tissue disorders (principal)
CPT/HCPCS: 76882; 93971

== ENCOUNTER → 2021-09-24 | Outpatient (CLI) | payer OTHER, SELFPAY ==
--- NOTE | 2021-09-24 11:14 | MRI_ITS ---
EXAM: MR HEAD WITHOUT AND WITH INTRAVENOUS CONTRAST, INTERNAL AUDITORY CANAL PROTOCOL CLINICAL INDICATION: ASYMERTRIC HEARING LOSS TECHNIQUE: Multiplanar and multisequence MR images of the internal auditory canal were obtained without and with intravenous contrast. This report was created using frooly report Unsocial technology. CONTRAST: 14CC IV DOTAREM COMPARISON: None. FINDINGS: CRANIAL NERVES: Unremarkable. No mass. No abnormal enhancement. COCHLEA AND SEMICIRCULAR CANALS: Unremarkable. CEREBELLOPONTINE ANGLES: Unremarkable. No mass. BRAIN AND EXTRA-AXIAL SPACES: Chronic involutional changes of the brain. No intra- or extra-axial hemorrhage. No intracranial mass or mass effect. There is preservation of the palafox/white matter interface. Posterior fossa structures are unremarkable. Ventricles are appropriate for age. No hydrocephalus. Basal cisterns are patent. BONES/JOINTS: Unremarkable. No discrete lytic or blastic abnormalities. SINUSES: There is sinus disease. MASTOID AIR CELLS: Unremarkable as visualized. Clear. ORBITS: Unremarkable as visualized. Both globes, extraocular muscles, optic nerves and retrobulbar fat appear unremarkable. MRI/Brain W/WO Contrast IMPRESSION: Chronic involutional changes of the brain. Electronically Signed: Milo Otto MD at 18:25 EDT ,
[2021-09-24 11:31] LABS: CREATININE FINGERSTICK < 0.9 mg/dL (0.70-1.30); EGFR FINGERSTICK > 60.0000 mL/min (>60)
== END | disposition home or self-care (01) ==
PROVIDERS: PCP Family Medicine; Visit Provider Otolaryngology
DX: H91.90 Unspecified hearing loss, unspecified ear (principal); H93.12 Tinnitus, left ear
CPT/HCPCS: 70553; A9575

== ENCOUNTER → 2022-02-06 | Outpatient (CLI) | payer OTHER, SELFPAY ==
[2022-02-06 18:02] LABS: Absolute Lymphocyte Count 1.57 X10^3/uL (0.83-4.51); Absolute Neutrophil Count 4.5 X10^3/uL (2.0-7.7); Basophil# 0.06 X10^3/uL; Basophil% 0.9 % (0-1); Eosinophils% 2.9 % (0-5); Hematocrit 43.4 % (40-54); Lymphocyte # 1.57 X10^3/ul (0.83-4.51); Lymphocyte % 22.9 % (19-41); Mean Corp Hgb Conc 32.3 g/dL (32-36); Mean Corpuscular Hgb 29.5 pg (27.0-32.0); Mean Corpuscular Volume 91.4 fL (80-94); Mean Platelet Vol. 10.5 fl (6.2-12.0); Monocyte# 0.47 X10^3/uL; Monocyte% 6.9 % (0-10); NRBC Flagged by Analyzer 0 % (0-5); Neutrophil # 4.54 X10^3/uL (2.7-7.7); Neutrophil % 66.1 % (47-70); Platelet Count 283 K/mm3 (150-450); RBC Distribution Width CV 14.2 % (11.6-14.6); Red Blood Count 4.75 M/mm3 (4.6-6.2); White Blood Count 6.9 K/mm3 (4.4-11.0)
[2022-02-06 18:14] LABS: AST(SGOT) 28 U/L (15-37); Alanine Aminotransfer ALT/SGPT 26 U/L (16-61); Albumin, Serum 3.8 g/dL (3.2-5.0); Alkaline Phosphatase 63 U/L (45-117); Anion Gap 4 (5-15); BUN 12 mg/dL (7-18); BUN/Creat Ratio 10.8 RATIO (10-20); Calcium,Total 9.1 mg/dL (8.5-10.1); Chloride 107 mmol/L (98-107); Creatinine, Serum 1.11 mg/dL (0.70-1.30); EST Glomerular Filtration Rate 67 mL/min (>60); Est Glom Filt Rate - Afr Amer 81 mL/min (>60); Globulin 3.9 g/dL (2.2-4.2); Glucose 94 mg/dL (74-106); Magnesium 2.4 mg/dL (1.6-2.6); Potassium 4.2 mmol/L (3.5-5.1); Protein, Total 7.7 g/dL (6.4-8.2); Sodium Level 139 mmol/L (136-145); T4 Free Direct 0.82 ng/dL (0.76-1.46)
[2022-02-06 18:21] LABS: Hemoglobin A1c 5.8 % (3.8-5.6)
== END | disposition home or self-care (01) ==
LOC: MFPLAB 14:40
PROVIDERS: PCP Family Medicine; Referring Provider Family Medicine; Visit Provider Family Medicine
DX: I48.91 Unspecified atrial fibrillation (principal); R73.02 Impaired glucose tolerance (oral); E06.3 Autoimmune thyroiditis
CPT/HCPCS: 36415; 80053; 83036; 83735; 84439; 84443; 85025

== ENCOUNTER → 2022-07-02 | Outpatient (CLI) | payer OTHER, SELFPAY ==
[2022-07-02 17:50] LABS: Absolute Lymphocyte Count 1.85 X10^3/uL (0.83-4.51); Absolute Neutrophil Count 2.9 X10^3/uL (2.0-7.7); Basophil# 0.07 X10^3/uL; Basophil% 1.3 % (0-1); Eosinophil# 0.28 X10^3/uL; Eosinophils% 5.1 % (0-5); Hematocrit 42.3 % (40-54); Hemoglobin 13.7 g/dL (13.0-16.5); Lymphocyte # 1.85 X10^3/ul (0.83-4.51); Lymphocyte % 33.5 % (19-41); Mean Corp Hgb Conc 32.4 g/dL (32-36); Mean Corpuscular Hgb 29.3 pg (27.0-32.0); Mean Corpuscular Volume 90.6 fL (80-94); Mean Platelet Vol. 10.6 fl (6.2-12.0); Monocyte# 0.42 X10^3/uL; Monocyte% 7.6 % (0-10); NRBC Flagged by Analyzer 0 % (0-5); Neutrophil % 52.3 % (47-70); Platelet Count 240 K/mm3 (150-450); RBC Distribution Width CV 14.6 % (11.6-14.6); RBC Distribution Width SD 48.1 fl (35.1-43.9); Red Blood Count 4.67 M/mm3 (4.6-6.2); White Blood Count 5.5 K/mm3 (4.4-11.0)
[2022-07-02 18:30] LABS: AST(SGOT) 31 U/L (15-37); Alanine Aminotransfer ALT/SGPT 29 U/L (16-61); Albumin, Serum 3.6 g/dL (3.2-5.0); Alkaline Phosphatase 66 U/L (45-117); Anion Gap 3 (5-15); BUN 11 mg/dL (7-18); BUN/Creat Ratio 9.1 RATIO (10-20); Calcium,Total 8.7 mg/dL (8.5-10.1); Chloride 106 mmol/L (98-107); Creatinine, Serum 1.21 mg/dL (0.70-1.30); EST Glomerular Filtration Rate 60 mL/min (>60); Est Glom Filt Rate - Afr Amer 73 mL/min (>60); Globulin 3.5 g/dL (2.2-4.2); Glucose 85 mg/dL (74-106); Potassium 4.1 mmol/L (3.5-5.1); Protein, Total 7.1 g/dL (6.4-8.2); Sodium Level 135 mmol/L (136-145); T4 Free Direct 1.16 ng/dL (0.76-1.46); Thyroid Stim Hormone (TSH) 2.13 uIU/mL (0.358-3.74)
== END | disposition home or self-care (01) ==
LOC: MFPLAB 14:22
PROVIDERS: PCP Family Medicine; Referring Provider Family Medicine; Visit Provider Family Medicine
DX: I48.91 Unspecified atrial fibrillation (principal); R73.02 Impaired glucose tolerance (oral); E03.9 Hypothyroidism, unspecified
CPT/HCPCS: 36415; 80053; 83036; 83735; 84439; 84443; 85025

== ENCOUNTER → 2022-10-16 | Outpatient (CLI) | payer MEDICARE, SELFPAY ==
[2022-10-16 18:16] LABS: International Normalized Ratio 2.6; Prothrombin Time (Protime)PT. 27.8 SECONDS (11.7-14.9)
[2022-10-16 18:42] LABS: Vitamin B12 247 pg/mL (211-911)
[2022-10-21 15:08] LABS: VITAMIN B6 8.4 ug/L (3.4-65.2); Vitamin B1, Thiamine 141.5 nmol/L (66.5-200.0)
== END | disposition home or self-care (01) ==
LOC: MFPLAB 15:33
PROVIDERS: PCP Family Medicine; Visit Provider Family Medicine
DX: I48.91 Unspecified atrial fibrillation (principal); G62.9 Polyneuropathy, unspecified
CPT/HCPCS: 36415; 82607; 84207; 84425; 85610

== ENCOUNTER → 2023-03-18 | Outpatient (CLI) | payer MEDICARE, SELFPAY ==
[2023-03-18 15:29] LABS: Absolute Lymphocyte Count 1.49 X10^3/uL (0.83-4.51); Absolute Neutrophil Count 3.3 X10^3/uL (2.0-7.7); Basophil# 0.06 X10^3/uL; Basophil% 1.1 % (0-1); Eosinophils% 3.5 % (0-5); Hematocrit 43.4 % (40-54); Lymphocyte # 1.49 X10^3/ul (0.83-4.51); Lymphocyte % 26.1 % (19-41); Mean Corp Hgb Conc 32.3 g/dL (32-36); Mean Corpuscular Hgb 28.9 pg (27.0-32.0); Mean Corpuscular Volume 89.7 fL (80-94); Mean Platelet Vol. 10.6 fl (6.2-12.0); Monocyte# 0.63 X10^3/uL; NRBC Flagged by Analyzer 0 % (0-5); Neutrophil # 3.32 X10^3/uL (2.7-7.7); Neutrophil % 58.1 % (47-70); Platelet Count 196 K/mm3 (150-450); RBC Distribution Width CV 14.3 % (11.6-14.6); RBC Distribution Width SD 46.8 fl (35.1-43.9); Red Blood Count 4.84 M/mm3 (4.6-6.2); White Blood Count 5.7 K/mm3 (4.4-11.0)
[2023-03-18 16:14] LABS: Hemoglobin A1c 5.7 % (3.8-5.6)
[2023-03-18 16:20] LABS: ALB/GLOB Ratio 0.9 RATIO (0.9-2.4); AST(SGOT) 24 U/L (15-37); Alanine Aminotransfer ALT/SGPT 20 U/L (16-61); Albumin, Serum 3.6 g/dL (3.2-5.0); Alkaline Phosphatase 75 U/L (45-117); Anion Gap 3 (5-15); BUN 15 mg/dL (7-18); Calcium,Total 9.3 mg/dL (8.5-10.1); Chloride 106 mmol/L (98-107); Creatinine, Serum 1.15 mg/dL (0.70-1.30); EST Glomerular Filtration Rate 64 mL/min (>60); Est Glom Filt Rate - Afr Amer 77 mL/min (>60); Globulin 4.1 g/dL (2.2-4.2); Glucose 92 mg/dL (74-106); Magnesium 2.3 mg/dL (1.6-2.6); Potassium 4.1 mmol/L (3.5-5.1); Protein, Total 7.7 g/dL (6.4-8.2); Sodium Level 137 mmol/L (136-145); T4 Free Direct 1.15 ng/dL (0.76-1.46); Thyroid Stim Hormone (TSH) 4.03 uIU/mL (0.358-3.74)
== END | disposition home or self-care (01) ==
LOC: MFPLAB 11:20
PROVIDERS: PCP Family Medicine; Visit Provider Family Medicine
DX: I48.91 Unspecified atrial fibrillation (principal); R73.02 Impaired glucose tolerance (oral); E03.9 Hypothyroidism, unspecified
CPT/HCPCS: 36415; 80053; 83036; 83735; 84439; 84443; 85025

== ENCOUNTER → 2023-03-30 | Outpatient (CLI) | payer MEDICARE, SELFPAY ==
--- NOTE | 2023-03-30 14:23 | ART_ITS ---
Reason For Study: Decreased Pedal Pulses Procedure A bilateral lower extremity continuous wave Doppler with analog waveform analysis,segmental pressures,and ankle brachial indexes without exercise. Left Segmental Pressures Left brachial= 137mmHg. Left posterior tibial artery = 158mmHg. Left dorsalis pedis artery = 153mmHg. Unable to acquire LT Toe Pressure. The left posterior tibial artery waveforms are biphasic. The left dorsalis pedis waveforms are biphasic. Right Segmental Pressures Right brachial= 135mmHg. Right posterior tibial artery = 172mmHg. Right dorsalis pedis artery = 181mmHg. Right digit = 87 mmHg. The right posterior tibial artery waveforms are triphasic. The right dorsalis pedis waveforms are biphasic. Indices The right ankle brachial index by the posterior tibial artery is 1.26. The right ankle brachial index by the dorsalis pedis is 1.32. The right digital-brachial index is 0.64. The left ankle brachial index by the posterior tibial artery is 1.15. The left ankle brachial index by the dorsalis pedis is 1.12. VL/Lower Ext Art Exam w/o Exercis Interpretation Summary Right SOLITARIO 1.32, normal. Doppler/PVR waveforms of the right leg normal at rest. TBI diminished, pedal/digit disease vs spasm. Left SOLITARIO 1.15, normal. Doppler/PVR waveforms of the left leg normal at rest. Di git pressure not obtained. Ordering Physician: Rell Collins Referring Physician: Rell Collins Performed By: Sean Valles RVRyan
--- OUTSIDE RECORDS SUMMARY | 2023-03-30 15:43 | XMS RPT_ITS | CCD ---
Author Name Unknown Address [address] [place] [address] Organization [facility] Care Team Providers Care [employer] Name Role Phone BERNABE SAAB, DR RAUL Obrien Attending Christianne PADILLA MD, REBECCA Primary Care Unavailable VALERIE SAAB, REBECCA Primary Care Physician Medications Current Medications Medication Drug Class(es) Dates Sig (Normalized) Sig (Original) acetaminophen 500 mg oral capsule (1 source) Start: 10-06-2017 acetaminophen 500 mg oral capsule Dose : 1,000 mg = 2 cap(s), Oral, q4h, PRN for pain, 0 Refill(s) Start Date: 10/06/17 Status: Ordered Centrum Silver oral tablet (1 source) Start: 10-06-2017 take 1 tablet by mouth once daily Centrum Silver oral tablet Dose = 1 tab(s), Oral, qDay, # 30 tab(s), 0 Refill(s) Start Date: 10/06/17 Status: Ordered meclizine hydrochloride 25 mg oral tablet (1 source) Antiemetic Start: 10-25-2022 meclizine 25 mg oral tablet Dose : 25 mg = 1 tab(s), Oral, TID, PRN as needed for dizziness, # 15 tab(s), 0 Refill(s) Start Date: 10/25/22 Status: Ordered pantoprazole 20 mg delayed release oral tablet (1 source) Proton Pump Inhibitor Start: 05-02-2020 pantoprazole 20 mg oral enteric coated tablet Dose : 40 mg = 2 tab(s), Oral, qDay, # 90 tab(s), 0 Refill(s) Start Date: 05/02/20 Status: Ordered warfarin sodium 3 mg oral tablet (1 source) Vitamin K Antagonist Start: 05-10-2019 Coumadin 3 mg oral tablet Dose : 3 mg = 1 tab(s), Oral, qDay, # 30 tab(s), 0 Refill(s) Start Date: 05/10/19 Status: Ordered Problems Problem Classification Problem Date Documented Da te Episodic/Chronic Abdominal hernia (1 source) Inguinal hernia 12-22-2017 Episodic Results Test Name Value Interpretation Reference Range Facil ity Vital Signs Date Time Vital Sign Value Performing Clinician Talib jaramillo 10-25-2022 07:58-[address] Pressure Cuff Size DR RAUL KIDD MD [facility] 10-25-2022 07:58-[address] RAUL KIDD MD [facility] 10-25-2022 07:58-[address] RAUL KIDD MD [facility] 10-25-2022 07:58-0400 Body temperature 97.88 [degF] DR RAUL KIDD MD [facility] 10-25-2022 07:58-0400 Diastolic Blood Pressure Non-Invasive [address] RAUL KIDD MD [facility] 10-25-2022 07:58-0400 Heart rate 79 /min DR RAUL KIDD MD [facility] 10-25-2022 07:58-0400 Respiratory rate 18 /min DR RUAL KIDD MD [facility] 10-25-2022 07:58-0400 Systolic Blood Pressure Non-Invasive [address] RAUL KIDD MD [facility] Encounters Encounter Date Encounter Type Care Provider Facility Start: 10-25-2022 End: 10-25-2022 Emergency department patient visit DR RAUL KIDD MD Facility:B Start: 10-25-2022 End: 10-25-2022 Emergency department patient visit DR RAUL KIDD MD [facility] Procedures Date Procedure Procedure Detail Performing Clinician Start: 11-09-2018 Electrocardiographic monitor and recorder, device (physical object) DR RAUL KIDD MD Payers Date Payer Category Payer Medicare [id number] 1935 Unknown [id number] Social History Date Type Detail Facility Start: 05-06-2019 Tobacco smoking status Ex-smoker (fi nding) [facility] Sex Assigned At Male [facility] Medical Equipment Procedure Code Equipment Code Equipment Origin al Text Equipment Identifier Dates Unknown Unknown 12/28/17 Unknown Unknown FDA Start: 12-28-2017 Functional Status Date Assessment Result Facility 10-25-2022 Functional Status Independent [facility] 10-25-2022 Functional Status [facility] Mental Status Date Assessment Result Facility 10-25-2022 Mental Status Orientation Oriented x 4 [facility] 10-25-2022 Mental Status [facility] Discharge instructions 10-25-2022 Note Date & Type Note Facility 10-25-2022 Hospital Discharg e instructions Patient Education 10/25/2022 10:01:04 Dizziness (Vertigo) and Balance Problems: Staying Safe Dizziness (Vertigo) and Balance Problems: Staying Safe Replace burned-out light bulbs to keep your home safe and well lit. Falls or accidents can lead to pain, broken bones, and fear of future falls. Protect yourself and others by preparing for episodes. Simple steps can help you stay safe at home and wherever you go. Lighting Keep all areas well lit. This helps your eyes send the right signals to the brain. It also makes you less likely to trip and fall. If bright lights make symptoms worse, dim the lights or lie in a dark room until the dizziness passes. Then turn the lights back to their normal level. Tips: Keep a flashlight by the bed. Place nightlights in bathrooms and hallways. Replace burned-out bulbs, or have someone replace them for you. Preventing falls To reduce your risk of falling: Get out of bed or up from a chair slowly. Wear low-heeled shoes that fit properly and have slip-resistant soles. Remove throw rugs. Clear clutter from walkways. Use handrails on stairs. Have handrails installed or adjusted if needed. Install grab bars in the bathroom. Don't use towel racks for balance. Use a shower stool. Also put adhesive strips in the shower or on the tub floor. Going out With a little time and preparation, you can get around safely. Tips: Bring a cane or walking aid if needed. Give yourself plenty of time in case you start to get dizzy. Ask your healthcare provider what type of exercise is safe for your condition. Be patient. If an activity such as walking through a crowded shop causes you stress, you may not be ready for it yet. Driving If you become dizzy or disoriented while driving, you could hurt yourself and others. That's why it's best to not drive until symptoms have gone away. In some cases, your license may be temporarily held until it's safe for you to drive again. For safety: Ask a friend to drive for you. Take public transportation. Walk to stores and other places when you can. Asking for help Don't be afraid to ask for help running errands, cooking meals, and doing exercise. Whether it's a friend, loved one, neighbor, or stranger on the street, a little help can make a world of difference. 3904-6014 [employer]. [address] [place] [address]. All rights reserved. This information is not intended as a substitute for professional medical care. Always follow your healthcare professional's instructions. Follow Up Care 10/25/2022 07:48:24 With:ESTEPHANIE JEWELL DO Address: [address] [place] [address] [place] [phone] When:2-4 days [facility] Emergency department Discharge summary 10-25-2022 Note Date & Type Note Facility 10-25-2022 Emergency department Discharge summary Discharge Instructions Thank you for allowing [facility] to assist you with your healthcare needs. The following is important discharge information regarding your hospital visit. Diagnosis from Today's Visit Dizziness Vertigo What to Do Next Instructions from Your Care Team No qualifying data available. Post Acute Orders No qualifying data available. You Need to Schedule the Following Appointments Follow Up with ESTEPHANIE JEWELL DO When Within 2-4 days Where: [address] [place] [address]- [phone] Allergies NKA Medications Please ask your primary doctor or pharmacist before taking any other medication not listed, including over the counter drugs, herbal medications, vitamins and or supplements as they may interact with your home medications. What How Much When Instructions Last Dose New meclizine (meclizine 25 mg oral tablet) 1 tab(s) by mouth Three (3) times a day as needed for as needed for dizziness Printed Prescription Unchanged acetaminophen (acetaminophen 500 mg oral capsule) 2 cap by mouth Every 4 hours as needed for for pain Unchanged multivitamin with minerals (Centrum Silver oral tablet) 1 tab(s) by mouth Once a day Unchanged pantoprazole (pantoprazole 20 mg oral enteric coated tablet) 2 tab(s) by mouth Once a day Unchanged warfarin (Coumadin 3 mg oral tablet) 1 tab(s) by mouth Once a day Please take this list to your next doctor s visit. Bring all medications you take, including over the counter medications, herbals and other supplements with you to your doctor s visit. Patients and families are reminded to discard old lists and to update any records with all medication providers or retail pharmacies. Education Materials Dizziness (Vertigo) and Balance Problems: Staying Safe Replace burned-out light bulbs to keep your home safe and well lit. Falls or accidents can lead to pain, broken bones, and fear of future falls. Protect yourself and others by preparing for episodes. Simple steps can help you stay safe at home and wherever you go. Lighting Keep all areas well lit. This helps your eyes send the right signals to the brain. It also makes you less likely to trip and fall. If bright lights make symptoms worse, dim the lights or lie in a dark room until the dizziness passes. Then turn the lights back to their normal level. Tips: Keep a flashlight by the bed. Place nightlights in bathrooms and hallways. Replace burned-out bulbs, or have someone replace them for you. Preventing falls To reduce your risk of falling: Get out of bed or up from a chair slowly. Wear low-heeled shoes that fit properly and have slip-resistant soles. Remove throw rugs. Clear clutter from walkways. Use handrails on stairs. Have handrails installed or adjusted if needed. Install grab bars in the bathroom. Don't use towel racks for balance. Use a shower stool. Also put adhesive strips in the shower or on the tub floor. Going out With a little time and preparation, you can get around safely. Tips: Bring a cane or walking aid if needed. Give yourself plenty of time in case you start to get dizzy. Ask your healthcare provider what type of exercise is safe for your condition. Be patient. If an activity such as walking through a crowded shop causes you stress, you may not be ready for it yet. Driving If you become dizzy or disoriented while driving, you could hurt yourself and others. That's why it's best to not drive until symptoms have gone away. In some cases, your license may be temporarily held until it's safe for you to drive again. For safety: Ask a friend to drive for you. Take public transportation. Walk to stores and other places when you can. Asking for help Don't be afraid to ask for help running errands, cooking meals, and doing exercise. Whether it's a friend, loved one, neighbor, or stranger on the street, a little help can make a world of difference. [phone] [employer]. [address] [place] [address]. All rights reserved. This information is not intended as a substitute for professional medical care. Always follow your healthcare professional's instructions. Additional Information VACCINATE! IT SAVES LIVES! Members of the community who have not yet received the COVID-19 vaccine and would like to receive it can visit one of [facility] vaccine clinics. There are many vaccine clinic locations within the [facility]. For locations and available times, please visit [email or web address].g [email or web address] It is important to note that some COVID mobile vaccine clinics are held outdoors and may be canceled in rainy or stormy conditions. To learn more about pediatric vaccinations (ages 5-11), we invite you to visit the [facility] webpage. [email or web address] To learn more about the COVID-19 vaccine, we invite you to visit the CDC website for a list of frequently asked questions. https://www.cdc.gov/coronavirus/2 019-ncov/vaccines/faq.html [facility] Patient Portal Access Instructions: Stay connected with your healthcare team and access your personal medical information anytime with the [facility] Patient Portal. If you would like a full copy of your medical records please contact the [facility] Medical Records Department Thursday through Thursday between 8a.m. and 4:30p.m. Please follow the directions below to access the portal: 1.Access the email account you provided upon registration to the hospital.2.Look for an invitation email from [facility].3.Open the email and access the invitation link: Accept Invitation to [facility].Fill in the required sneed to create your account. Sign into www.[employer] with your username and password that you created in the above steps to stay up to date. You can then view a summary of results, a summary of your visits, and the ability to download your summaries to your computer or send the information securely to a physician. Remember that your healthcare information is confidential, so carefully consider who you will allow to register on the [facility] Patient Portal for access to your information. You can also access the [facility] Patient Portal on the [employer]. Simply click on Health Records under Health Data and then click on the [employer] logo. HOW TO SAFELY DISPOSE OF PRESCRIPTION MEDICATIONS Please use one of the following methods to safely dispose of your unused medications. 1.Use a drug disposal kit: the drug disposal pouch allows you to safely discard your old and unused drugs. Ask your nurse to give you one when you are discharged.2.Visit a local take-back location: Many local pharmacies and police departments have programs that collect old and unwanted prescription drugs. Call your local pharmacy or go to http://Athigo.Linekong/6P3Rt3g to find one close to you.3.Make use of household items: Use cat litter or old coffee grounds to dispose medications if other options are not available. Mix your drugs with these household products, seal them in an airtight container and throw it into the garbage. Call [facility]: [phone] to be sure your drugs can be disposed of in this way. Some medicines may require a different approach.4.Never flush your medications down the toilet. IF YOU HAVE BEEN PRESCRIBED AN OPIOIDS FOR PAIN If you have been prescribed an opioid (such as hydrocodone, oxycodone or morphine), it is critical to understand the possible side effects and risks of opioid pain medications. Even when taken as directed, opioids can have several side effects including: Tolerance, meaning you might need to take more of a medication for the same pain relief. Nausea, vomiting and/or constipation. Sleepiness, dizziness, dry mouth, confusion, depression or itching. Physical dependence, meaning you have withdrawal symptoms when a medication is stopped ? this can develop within a few days. KNOW YOUR RESPONSIBILITIES It is important to know exactly how much and how often to take the opioid pain medications you are prescribed. Never take opioids in higher amounts or more often than prescribed. Do not combine opioids with alcohol or other drugs that cause drowsiness, such as benzodiazepines, also known as benzos, including diazepam and alprazolam, muscle relaxants or sleep aids. Never sell or share prescription opioids. This is illegal. Store opioids in a secure place and out of reach of others (including children, family, friends and visitors). The last page(s) of this document has been signed and retained as a CHART COPY Signatures Patient Education Materials Dizziness (Vertigo) and Balance Problems: Staying Safe Medication Leaflets My discharge plan and instructions have been reviewed and explained to me and I,MILLER LEE understand my current condition and have read and understand these discharge instructions. I have received a written copy of the plan/instructions. If I have questions, I am aware that I should contact my doctor. Patient/[employer] Signature: Date/Time: Relationship to Patient: ____ Witness Name/Signature: Date/Time: [facility] Clinical Note 10-25-2022 Note Date & Type Note Facility 10-25-2022 Note ORIGINAL EXAMINATION: CT OF THE HEAD WITHOUT CONTRAST 10/25/2022 8:57 am TECHNIQUE: CT of the head was performed without the administration of intravenous contrast. Automated exposure control, iterative reconstruction, and/or weight based adjustment of the mA/kV was utilized to reduce the radiation dose to as low as reasonably achievable. COMPARISON: None. HISTORY: ORDERING SYSTEM PROVIDED HISTORY: Reason for Exam: dizziness FINDINGS: There is prominent thickening and sclerosis of the taylor of the left maxillary sinus with volume loss as well. This is compatible with remote/chronic sinusitis. There is some mucosal thickening throughout the ethmoid air cells, also indicating chronic sinusitis. No calvarial abnormality seen. The brain shows mild atrophy with appropriate prominence of the CSF spaces. No hemorrhage or mass is visible and the sulci and palafox-white junctions are preserved. Mild chronic ischemic small vessel white matter change is evident. No other contributory finding. IMPRESSION: Areas of chronic sinusitis, especially left maxillary. No acute intracranial abnormality seen. Interpreted by: Bret Allen MD Preliminary Report By: Bret Allen MD Electronically signed By Bret Allen MD Dictated Date: 10/25/2022 9:04:23 AM Prelim Date: 10/25/2022 9:05:48 AM Sign Date: 10/25/2022 9:05:48 AM Ordering Provider: RAUL KIDD [facility] Clinical Note 10-25-2022 Note Date & Type Note Facility 10-25-2022 Note Atrial fibrillation Borderline T abnormalities, inferior leads Electronic Signature: RAUL KIDD MD 10/25/2022 08:32:12 [facility] Evaluation + Plan note Note Date & Type Note Facility Evaluation + Plan note No data available for this section [facility] Summary Purpose Family History No Family History Records Found No data available for this section Advance Directives No Advanced Directives Records Found Additional Source Comments (unrecognized sect ion and content) No Status Records Found INFORMATION SOURCE (unrecogn ized section and content) Patient Care team informatio n (unrecognized section and content) Care Team Personnel Name: REBECCA PADILLA MD Member Role: Primary Care Physician Address: Address: [address] [place] [id number] Name: RAUL KIDD MD Position: ED Physician Member Role: Attending Physician Address: Address: [address] [place] [id number] Care Team Related Persons Name: TANNER ELE Address: Home [address] [place], [place] [id number] FOR RECORDS PERTAINING TO PATIENTS WHO ARE OR HAVE BEEN ENROLLED IN A CHEMICAL DEPENDENCY/SUBSTANCEABUSE PROGRAM, SOME INFORMATION MAY BE OMITTED. This clinical summary was aggregated from multiple sources. Caution should be exercised in using it in the provision of clinical care. This summary normalizes information from multiple sources, and as a consequence, information in this document may materially change the coding, format and clinical context of patient data. In addition, data may be omitted in some cases. CLINICAL DECISIONS SHOULD BE BASED ON THE PRIMARY CLINICAL RECORDS. [facility] [employer] provides no warranty or guarantee of the accuracy or completeness of information in this document.
== END | disposition home or self-care (01) ==
PROVIDERS: PCP Family Medicine; Referring Provider Family Medicine; Visit Provider Family Medicine
DX: R09.89 Other specified symptoms and signs involving the circulatory and respiratory systems (principal)
CPT/HCPCS: 93923; 93924

== ENCOUNTER → 2023-09-17 | Outpatient (CLI) | payer MEDICARE, SELFPAY ==
[2023-09-17 12:26] LABS: International Normalized Ratio 1.8; Prothrombin Time (Protime)PT. 20.6 SECONDS (11.7-14.9)
[2023-09-17 12:29] LABS: Absolute Lymphocyte Count 1.65 X10^3/uL (0.83-4.51); Absolute Neutrophil Count 3.3 X10^3/uL (2.0-7.7); Basophil# 0.06 X10^3/uL; Basophil% 1.1 % (0-1); Eosinophil# 0.17 X10^3/uL; Hematocrit 43.2 % (40-54); Hemoglobin 14.2 g/dL (13.0-16.5); Lymphocyte # 1.65 X10^3/ul (0.83-4.51); Lymphocyte % 29.4 % (19-41); Mean Corp Hgb Conc 32.9 g/dL (32-36); Mean Corpuscular Hgb 29.5 pg (27.0-32.0); Mean Corpuscular Volume 89.8 fL (80-94); Mean Platelet Vol. 10.6 fl (6.2-12.0); Monocyte# 0.46 X10^3/uL; Monocyte% 8.2 % (0-10); NRBC Flagged by Analyzer 0 % (0-5); Neutrophil # 3.27 X10^3/uL (2.7-7.7); Neutrophil % 58.1 % (47-70); Platelet Count 227 K/mm3 (150-450); RBC Distribution Width CV 14.6 % (11.6-14.6); RBC Distribution Width SD 47.8 fl (35.1-43.9); Red Blood Count 4.81 M/mm3 (4.6-6.2); White Blood Count 5.6 K/mm3 (4.4-11.0)
[2023-09-17 13:02] LABS: AST(SGOT) 29 U/L (15-37); Alanine Aminotransfer ALT/SGPT 19 U/L (16-61); Albumin, Serum 3.7 g/dL (3.2-5.0); Alkaline Phosphatase 70 U/L (45-117); Anion Gap 6 (5-15); BUN 12 mg/dL (7-18); BUN/Creat Ratio 11.2 RATIO (10-20); Calcium,Total 9.1 mg/dL (8.5-10.1); Chloride 105 mmol/L (98-107); Cholesterol 141 mg/dL (200); Creatinine, Serum 1.07 mg/dL (0.70-1.30); EST Glomerular Filtration Rate 69 mL/min (>60); Est Glom Filt Rate - Afr Amer 84 mL/min (>60); Globulin 3.8 g/dL (2.2-4.2); Glucose 80 mg/dL (74-106); High Density Lipoprotein 42 mg/dL; Magnesium 2.3 mg/dL (1.6-2.6); Potassium 4.1 mmol/L (3.5-5.1); Protein, Total 7.5 g/dL (6.4-8.2); Sodium Level 138 mmol/L (136-145); T4 Free Direct 1.06 ng/dL (0.76-1.46); Thyroid Stim Hormone (TSH) 2.75 uIU/mL (0.358-3.74); Triglycerides 93 mg/dL; Very Low Density Lipoprotein 19 mg/dL (5-40)
[2023-09-17 13:18] LABS: Hemoglobin A1c 5.9 % (3.8-5.6)
== END | disposition home or self-care (01) ==
LOC: MFPLAB 10:25
PROVIDERS: PCP Family Medicine; Visit Provider Family Medicine
DX: R73.02 Impaired glucose tolerance (oral) (principal); I48.91 Unspecified atrial fibrillation; E03.9 Hypothyroidism, unspecified; E06.3 Autoimmune thyroiditis
CPT/HCPCS: 36415; 80053; 80061; 83036; 83735; 84439; 84443; 85025; 85610

== ENCOUNTER → 2024-05-12 | Outpatient (CLI) | payer MEDICARE, SELFPAY ==
[2024-05-12 15:34] LABS: Absolute Lymphocyte Count 1.56 X10^3/uL (0.83-4.51); Absolute Neutrophil Count 3.7 X10^3/uL (2.0-7.7); Basophil# 0.09 X10^3/uL; Basophil% 1.5 % (0-1); Eosinophil# 0.26 X10^3/uL; Eosinophils% 4.3 % (0-5); Hematocrit 45.3 % (40-54); Hemoglobin 14.5 g/dL (13.0-16.5); Lymphocyte # 1.56 X10^3/ul (0.83-4.51); Lymphocyte % 25.6 % (19-41); Mean Corpuscular Hgb 29.2 pg (27.0-32.0); Mean Corpuscular Volume 91.1 fL (80-94); Mean Platelet Vol. 10.6 fl (6.2-12.0); Monocyte# 0.51 X10^3/uL; Monocyte% 8.4 % (0-10); NRBC Flagged by Analyzer 0 % (0-5); Neutrophil # 3.66 X10^3/uL (2.7-7.7); Platelet Count 248 K/mm3 (150-450); RBC Distribution Width CV 14.3 % (11.6-14.6); RBC Distribution Width SD 47.5 fl (35.1-43.9); Red Blood Count 4.97 M/mm3 (4.6-6.2); White Blood Count 6.1 K/mm3 (4.4-11.0)
[2024-05-12 15:38] LABS: Hemoglobin A1c 5.9 % (3.8-5.6)
[2024-05-12 15:41] LABS: AST(SGOT) 24 U/L (15-37); Alanine Aminotransfer ALT/SGPT 25 U/L (16-61); Albumin, Serum 3.9 g/dL (3.2-5.0); Alkaline Phosphatase 69 U/L (45-117); Anion Gap 5 (5-15); BUN 11 mg/dL (7-18); BUN/Creat Ratio 8.7 RATIO (10-20); Calcium,Total 9.2 mg/dL (8.5-10.1); Chloride 107 mmol/L (98-107); Creatinine, Serum 1.26 mg/dL (0.70-1.30); EST Glomerular Filtration Rate 57 mL/min (>60); Est Glom Filt Rate - Afr Amer 69 mL/min (>60); Globulin 4.1 g/dL (2.2-4.2); Glucose 90 mg/dL (74-106); Magnesium 2.3 mg/dL (1.6-2.6); Sodium Level 140 mmol/L (136-145); T4 Free Direct 1.12 ng/dL (0.76-1.46)
== END | disposition home or self-care (01) ==
LOC: MFPLAB 10:53
PROVIDERS: PCP Family Medicine; Referring Provider Family Medicine; Visit Provider Family Medicine
DX: I48.91 Unspecified atrial fibrillation (principal); E03.9 Hypothyroidism, unspecified; R73.02 Impaired glucose tolerance (oral)
CPT/HCPCS: 36415; 80053; 83036; 83735; 84439; 84443; 85025

== ENCOUNTER 2024-07-01 10:25 | Outpatient (RCR) | payer MEDICARE, SELFPAY ==
--- NOTE | 2024-07-01 11:34 | HP.PTEVAL ---
Patient's Visit Information Visit Information Visit Information: MILLER LEE is a 89 year old M referred to Physical Therapy by Dr. Rell Collins MD with a diagnosis of BPPV, balance difficulties.. Date of Evaluation: 07/01/24 Physical Therapist: Mannie Stockton, DPT, OCS, CSCS Visit Plan Plan: Pt is without signs of positional vertigo, better than normal balance for his age and we reviewed balance safety with HO today and age appropriate balance behavior and other possible reasons for dizzyness but is to check back with doctor as no signs of vestibular deficit and balance is on par and activity level is high. No skilled intervention necessary at this time for PT. Subjective Subjective: Getting dizzy now for years. Has some leg pain at times. Dizzy described as unsteady when first get up and veers to the side sometimes at side. No spinning just unsteady feeling. head feels funny at times. Sponge baths at times to stay safe. sitting and lying are fine. Sleeps well. No cane or walker. Spends day bumming around in yard. 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 activities are pretty normal. Basic ADLs are all I. Steps None, a couple to patio and no problem with railing no regular ex Numbness in legs since fell off roof 2017 Objective Objective: Walks into PT I, trasnfers I without UE, steps reciprocal with one rail. very spunky and active. C/o intermittent feeling off in head , maybe he thinks after taking his meds. cervical adn UE AROM WFL and without pain. - b hallpike delmy - roll test no posoitional dizzyness today with head turns or nods. Oculmotor: no nystagmus with gaze or head shake - skew eye deviation - ocular tilt - head thrust pursuit, saccades and VOR are all normal without symptoms H and V. Mobility is much ahead of typical 89 yo on balance reviewed balance safety with pt with HO based on age approrpiate behavior moreso that balance deficits. Balance/Special Test Scores Functional Gait Assessment Score: 25 % Disability: 16.6700 CATSIB Score (Max score 120 seconds): 102 Dizziness Score: 0 Rehabilitation Potential Physical Therapy Diagnosis: Doing well with positions, balance for age and mobility. Anticipated Interventions Text: Thank you for the opportunity to evaluate your patient. For Medicare and Medicare HMO plans, please review the plan of care and approve it. It will need to be FAXED BACK to us at [phone] for Medicare purposes. For Medicare only, by signing this I certify the plan of care. Please let me know if there are questions or concerns regarding this plan of care. Physician Signature: Date:
== END 2024-07-01 15:07 | disposition home or self-care (01) ==
LOC: PT 10:25
PROVIDERS: PCP Family Medicine; Referring Provider Family Medicine; Visit Provider Family Medicine
DX: R26.89 Other abnormalities of gait and mobility (principal); H81.10 Benign paroxysmal vertigo, unspecified ear
CPT/HCPCS: 97161

== ENCOUNTER → 2024-08-03 | Outpatient (CLI) | payer MEDICARE, SELFPAY ==
--- NOTE | 2024-08-03 10:12 | MRI_ITS ---
PROCEDURE: BRAIN W/WO CONTRAST 08/03/2024 REASON FOR EXAM: LOSS OF BALANCE TECHNIQUE: Routine brain MRI without and with intravenous contrast. Multiplanar and multisequence images were obtained. CONTRAST: Clariscan VOLUME: 15 mL COMPARISON: MRI brain from 09/24/2021. FINDINGS: There is prominence of the ventricles and sulci indicative of atrophy. No midline shift, mass effect, or extra-axial fluid collections are identified. There are multiple foci of hyperintense T2/FLAIR signal intensity in the periventricular and deep white matter relating to chronic small vessel ischemic disease. No diffusion restriction is identified on diffusion-weighted imaging to suggest acute/subacute ischemic changes. No acute intracranial hemorrhage or acute territorial infarction is seen. No abnormal enhancement is identified. Corpus callosum, optic chiasm, suprasellar cistern, and cerebellar tonsils are within normal range. Major vascular flow voids are present. Bilateral orbits are intact. Nasal septum is deviated to the right. There is mild mucosal thickening of the paranasal sinuses. MRI/Brain W/WO Contrast IMPRESSION: 1. No acute intracranial process or abnormal enhancement. 2. Chronic small vessel ischemic disease. 3. Atrophy. Reading Location: [facility]
== END | disposition home or self-care (01) ==
PROVIDERS: PCP Family Medicine; Referring Provider Family Medicine; Visit Provider Family Medicine
DX: R26.89 Other abnormalities of gait and mobility (principal)
CPT/HCPCS: 70553; A9575

== ENCOUNTER → 2024-12-29 | Outpatient (CLI) | payer MEDICARE, SELFPAY ==
[2024-12-29 18:51] LABS: Hematocrit 38.6 % (40-54); Hemoglobin 12.9 g/dL (13.0-16.5); Immature Granulocytes Count 0.010 X10^3/uL (0.0-0.0); Mean Corp Hgb Conc 33.4 g/dL (32-36); Mean Corpuscular Volume 87.3 fL (80-94); Mean Platelet Vol. 10.2 fl (6.2-12.0); NRBC Flagged by Analyzer 0 % (0-5); Platelet Count 291 K/mm3 (150-450); RBC Distribution Width CV 14.2 % (11.6-14.6); RBC Distribution Width SD 45.4 fl (35.1-43.9); Red Blood Count 4.42 M/mm3 (4.6-6.2); White Blood Count 6.3 K/mm3 (4.4-11.0)
[2024-12-29 19:28] LABS: AST(SGOT) 28 U/L (<=37); Alanine Aminotransfer ALT/SGPT 14 U/L (<=46); Albumin, Serum 4.1 g/dL (3.4-4.8); Alkaline Phosphatase 68 U/L (40-129); Anion Gap 11 (5-15); BUN 11 mg/dL (4-19); BUN/Creat Ratio 9.2 RATIO (10-20); Calcium,Total 9.0 mg/dL (7.6-11.0); Carbon Dioxide 23.6 mmol/L (21.0-32.0); Chloride 105 mmol/L (98-108); Globulin 3.1 g/dL (2.2-4.2); Glucose 110 mg/dL (70-99); Magnesium 2.2 mg/dL (1.5-2.2); Potassium 3.9 mmol/L (3.3-5.1)
== END | disposition home or self-care (01) ==
LOC: MFPLAB 14:15
PROVIDERS: PCP Family Medicine; Visit Provider Family Medicine
DX: I48.91 Unspecified atrial fibrillation (principal); E03.9 Hypothyroidism, unspecified; R73.02 Impaired glucose tolerance (oral)
CPT/HCPCS: 36415; 80053; 83036; 83735; 84443; 85025

== ENCOUNTER → 2025-01-03 | Outpatient (CLI) | payer MEDICARE, SELFPAY ==
[2025-01-03 16:09] LABS: Ferritin 57 ng/mL (37-417); Iron 62 ug/dL (65-175); Iron Binding Capacity,Total 313 ug/dL (250-450); Iron Binding Capacity,Unsat 251 ug/dL (228-428); Vitamin B12 264 pg/mL (180-914)
== END | disposition home or self-care (01) ==
LOC: MTLAB 11:39
PROVIDERS: PCP Family Medicine; Referring Provider Family Medicine; Visit Provider Family Medicine
DX: D64.9 Anemia, unspecified (principal); R79.89 Other specified abnormal findings of blood chemistry
CPT/HCPCS: 36415; 82607; 82728; 83540; 83550; 84439; 84443; 86376; 86800

== ENCOUNTER → 2025-03-09 | Outpatient (CLI) | payer MEDICARE, SELFPAY ==
--- NOTE | 2025-03-09 09:00 | RAD_ITS ---
PROCEDURE: ESOPHAGUS DUAL CONTRAST 03/09/2025 REASON FOR EXAM: DYSPHAGIA TECHNIQUE: ESOPHAGUS DUAL CONTRAST FLUOROSCOPIC TIME: 2 minutes 51 seconds. FLUOROGRAPHIC IMAGES: Numerous. COMPARISON: None. FINDINGS: Solid aspiration was seen during the examination. The cervical region is not well seen due to exam type, with an atypical appearance. Also, a hypertrophic cricopharyngeal muscle is noted. The thoracic esophagus shows no area of persistent narrowing, and no mucosal mass is seen. A patent esophagogastric junction is seen. Satisfactory passage of the 13 mm barium tablet into the stomach was seen. Gastroesophageal reflux was noted to the level of the mid esophagus. Limited imaging of the stomach and duodenum shows no abnormality. RAD/Esophagus Dual Contrast IMPRESSION: 1. Silent aspiration was seen during the examination. Consider speech patholog y referral. 2. The cervical region is not well seen due to exam type, with an atypical appe arance. Also, a hypertrophic cricopharyngeal muscle is noted. 3. Gastroesophageal reflux. Reading Location: [place] [id number]
== END | disposition home or self-care (01) ==
PROVIDERS: PCP Family Medicine; Referring Provider Internal Medicine Gastroenterology; Visit Provider Internal Medicine Gastroenterology
DX: R13.10 Dysphagia, unspecified (principal)
CPT/HCPCS: 74221